=== PATIENT | male | born 1975 | race African-American/Black ===

== ENCOUNTER 2024-07-20 16:33 | Emergency (ER) | payer MEDICAID, OTHER ==
[~2024-07-20] VITALS: Ht 167.6 cm; Wt 63.6 kg
[2024-07-20 18:35] LABS: Basophils # (auto) 0 10 ^3/uL (0-0.2); Basophils % (auto) 0.6 % (0.0-2.0); Eosinophils # (auto) 0 10 ^3/uL (0-0.8); Eosinophils % (auto) 0.7 % (0.0-7.0); Hematocrit 40.9 % (41.0-53.0); Hemoglobin 13.6 g/dL (13.5-17.5); Lymphocytes # (auto) 1.6 10 ^3/uL (0.4-5.4); Lymphocytes % (auto) 31.2 % (10.0-50.0); Mean Corpuscular Hemoglobin 28.8 pg (28.0-32.0); Mean Corpuscular Hgb Conc. 33.3 g/dL (32.0-36.0); Mean Corpuscular Volume 86.4 fL (80.0-100.0); Monocytes # (auto) 0.4 10 ^3/uL (0-1.3); Monocytes % (auto) 8.4 % (0.0-12.0); Neutrophils % (auto) 59.1 % (37.0-80.0); Nucleated Red Blood Cells % 0.2 %; Platelet Count (auto) 178 10^3/uL (140-450); Red Blood Cells 4.74 10^6/uL (4.5-5.90); Red Cell Distribution Width 15.4 % (11.8-14.3)
[2024-07-20 18:52] LABS: INR 1.02 (0.9-1.15); Partial Thromboplastin Time 30.3 SEC (24.5-34.5); Prothrombin Time 10.8 sec (9.3-11.8)
[2024-07-20 18:54] LABS: Alanine Aminotransferase 17 U/L (7-40); Albumin 4.4 g/dL (3.2-4.8); Alkaline Phosphatase 86 U/L (46-116); Anion Gap 7 (5-15); Aspartate Aminotransferase 17 U/L (13-40); BUN/Creatinine Ratio 6.9 (10.0-20.0); Bilirubin, Total 0.3 mg/dL (0.2-1.0); Blood Urea Nitrogen 8 mg/dL (9-23); Calcium 9.7 mg/dL (8.7-10.4); Carbon Dioxide 26 mmol/L (20-30); Chloride 109 mmol/L (98-107); Glucose 89 mg/dL (74-106); Potassium 4.4 mmol/L (3.5-5.1); Sodium 142 mmol/L (136-145); Total Protein 6.9 g/dL (5.7-8.2)
[2024-07-20] MEDS: PANTOPRAZOLE 40 MG/10 ML VIAL INJ IV ONE (20:10)
[2024-07-20] MEDS: SODIUM CHLORIDE 0.9% 1,000 ML IV ONE (20:12)
[2024-07-20 20:19] VITALS: PULSE 74; RESP 17; O2SAT 100
[2024-07-20] MEDS: IOHEXOL 300 MG/ML 100ML BOTTLE IJ ONE (20:45)
[2024-07-20 22:30] VITALS: BP 142/83; PULSE 77; RESP 17; TEMP 98.6; O2SAT 100
== END 2024-07-20 22:34 | disposition home or self-care (01) ==
LOC: ER 16:33
DX: K62.5 Hemorrhage of anus and rectum (principal); I10 Essential (primary) hypertension
CPT/HCPCS: 36415; 74177; 80053; 85025; 85610; 85730; 86850; 86900; 86901; 96361; 96374; 99285; J2470; J7030; Q9967

== ENCOUNTER 2024-09-10 08:51 | Inpatient (IN) | payer MEDICAID ==
[~2024-09-10] VITALS: Ht 167.6 cm; Wt 63.5 kg
--- NOTE | 2024-09-10 09:15 | ED.PDOC ---
History of Present Illness HPI Comments 48-year-old male presents with a chief complaint of dizziness x onset last night. Patient states that he has vertigo, and the dizziness is exacerbated when attempting to walk. Patient reports that he feels like stumbling over when attempting to walk. Patient mentions that he last had vertigo in 2011. EKG shows NSR with a rate of 58. Chief Complaint: High Blood Pressure Time Seen by MD: 09:06 Reviewed Notes: Medications, Allergies Information Source: Patient Mode of Arrival: Ambulatory Severity: Moderate Timing: Hours Duration: Since onset Prehospital treatment: None Past Medical History PAST MEDICAL HISTORY: HTN Surgical History (Other): Neck Surgery Unspecified Family History Family History: Reviewed,noncontributory to illness Social History Smoker: Non-Smoker Alcohol: Denies ETOH Use Drugs: Denies Drug Use Lives In: Home Constitutional: denies: chills, diaphoresis, fatigue, fever, malaise, sweats, weakness, others EENTM: denies: blurred vision, double vision, ear bleeding, ear discharge, ear drainage, ear pain, ear ringing, eye pain, eye redness, hearing loss, mouth pain, mouth swelling, nasal discharge, nose bleeding, nose congestion, nose pain, photophobia, tearing, throat pain, throat swelling, voice changes, others Respiratory: denies: cough, hemoptysis, orthopnea, SOB at rest, shortness of breath, SOB with excertion, stridor, wheezing, others Cardiovascular: denies: chest pain, dizzy spells, diaphoresis, Dyspnea on exertion, edema, irregular heart beat, left arm pain, lightheadedness, palpitations, PND, syncope, others Gastrointestinal: denies: abdomen distended, abdominal pain, blood streaked bowels, constipated, diarrhea, dysphagia, difficulty swallowing, hematemesis, melena, nausea, poor appetite, poor fluid intake, rectal bleeding, rectal pain, vomiting, others Genitourinary: denies: burning, dysuria, flank pain, frequency, hematuria, incontinence, penile discharge, penile sore, pain, testicle pain, testicle swelling, urgency, others Neurological: reports: dizziness; denies: fainting, headache, left sided numbness, left sided weakness, numbness, paresthesia, pre-existing deficit, right sided numbness, right sided weakness, seizure, speech problems, tingling, tremors, weakness, others Musculoskeletal: denies: back pain, gout, joint pain, joint swelling, muscle pain, muscle stiffness, neck pain, others Integumetry: denies: bruises, change in color, change in hair/nails, dryness, laceration, lesions, lumps, rash, wounds, others Allergic/Immunocompromised: denies: Difficulty Healing, Frequent Infections, Hives, Itching, others Hematologic/Lymphatic: denies: anemia, blood clots, easy bleeding, easy bruising, swollen glands, others Endocrine: denies: excessive hunger, excessive sweating, excessive thirst, excessive urination, flushing, intolerance to cold, intolerance to heat, u nexplained weight gain, unexplained weight loss, others Psychiatric: denies: anxiety, bipolar disorder, depression, hopeless, panic disorder, schizophrenia, sleepless, suicidal, others All Other Systems: Reviewed and Negative Physical Exam General Appearance: Moderate Distress, Normal HEENT: Normal ENT Inspection, Pharynx Normal, TMs Normal Neck: Full Range of Motion, Non-Tender, Normal, Normal Inspection Respiratory: Chest Non-Tender, Lungs Clear, No Accessory Muscle Use, No Respiratory Distress, Normal Breath Sounds Cardiovascular: No Edema, No JVD, No Murmur, No Gallop, Normal Peripheral Puls es, Regular Rate/Rhythm Breast Exam: Deferred Gastrointestinal: No Organomegaly, Non Tender, No Pulsatile Mass, Normal Bowel Sounds, Soft Genitalia: Deferred Pelvic: Deferred Rectal: Deferred Extremities: No calf tenderness, Normal capillary refill, Normal inspection, Normal range of motion, Non-tender, No pedal edema Musculoskeletal : Apperance: Normal Neurologic: Alert, clean up worker II-XII nml as Tested, No Motor Deficits, Normal Affect, Normal Mood, No Sensory Deficits Cerebellar Function: Normal Reflexes: Normal Skin: Dry, Normal Color, Warm Peripheral Pulses: 3+ Radial (R), 3+ Radial (L) Lymphatic: No Adenopathy Was a procedure done? Was a procedure done?: No EKG EKG : Pulse Rate (adult): 58 [place]: Normal Cardiac Rhythm: NSR Block: None Hypertrophy: None ST: Normal Differential Dx Considerations may include: Autonomic disorder Electrolyte imbalance X-Ray, Labs, Meds, VS Vital Signs Date Time Temp Pulse Resp B/P (MAP) Pulse Ox O2 Delivery O2 Flow Rate FiO2 09/10/24 09:15 58 09/10/24 09:05 58 09/10/24 09:03 97.2 70 16 172/115 (134) 100 Patient alert. Complaining of dizziness pain EKG reviewed does not show any acute changes pain Blood pressure elevated. Bradycardia. Saturation pristine on room air. Reviewed his previous visit. Counseled patient on effects of smoking cigarettes for 15 minutes. Counseled patient on effects of taking drugs for 15 minutes. Continues to have dizziness. Was given clonidine. Possibly will need MRI. Explained to the patient. Time of 1ST Reevaluation: 09:36 Reevaluation 1ST: Unchanged Patient Education/Counseling: Diagnosis, Treatment, Prognosis Family Education/Counseling: No Family Present Departure 1 Departure Time of Disposition: 09:21 Impression: Primary Impression: Hypertensive emergency Additional Impression: Autonomic disorder Disposition: ADMITTED INPATIENT Admit to: Med Surg Condition: Guarded Critical Care Note Critical Care Time?: Yes (45 min-critical care time only) Stability Stability form required: No Heart Score Heart Score: Heart Score Response (Comments) Value History Slightly Suspicious 0 EKG Normal 0 Age 45-64 1 Risk Factors 1 or 2 risk factors 1 Troponin Normal limit 0 Total 2 I personally scribed for LELAND QUINONES MD ([email or web address]) on 09/10/24 at 09:15. Electronically submitted by César Blevins ([email or web address]). LELAND QUINONES MD Sep 10, 2024 09:15
[2024-09-10] MEDS: cloNIDine HCL 0.1 MG TAB PO ONE (09:31)
[2024-09-10 09:40] LABS: Basophils # (auto) 0 10 ^3/uL (0-0.2); Basophils % (auto) 0.4 % (0.0-2.0); Eosinophils # (auto) 0 10 ^3/uL (0-0.8); Eosinophils % (auto) 0.8 % (0.0-7.0); Hematocrit 45.1 % (41.0-53.0); Hemoglobin 14.8 g/dL (13.5-17.5); Lymphocytes # (auto) 1.4 10 ^3/uL (0.4-5.4); Lymphocytes % (auto) 30.6 % (10.0-50.0); Mean Corpuscular Hemoglobin 28.2 pg (28.0-32.0); Mean Corpuscular Hgb Conc. 32.8 g/dL (32.0-36.0); Mean Corpuscular Volume 86.1 fL (80.0-100.0); Monocytes # (auto) 0.4 10 ^3/uL (0-1.3); Monocytes % (auto) 9.2 % (0.0-12.0); Neutrophils # (auto) 2.8 10 ^3/uL (1.6-8.6); Nucleated Red Blood Cells % 0.1 %; Platelet Count (auto) 159 10^3/uL (140-450); Red Blood Cells 5.24 10^6/uL (4.5-5.90); Red Cell Distribution Width 15.1 % (11.8-14.3); White Blood Cell 4.7 10^3/uL (4.4-10.8)
[2024-09-10 09:51] LABS: Chloride 109 mmol/L (98-107); Potassium 4.2 mmol/L (3.5-5.1); Sodium 140 mmol/L (136-145)
[2024-09-10 09:52] LABS: Anion Gap 3 (5-15); Carbon Dioxide 28 mmol/L (20-31)
[2024-09-10 09:57] LABS: BUN/Creatinine Ratio 13.4 (10.0-20.0); Blood Urea Nitrogen 16 mg/dL (9-23); Glucose 100 mg/dL (74-106)
[2024-09-10] MEDS ORDERED: HYDROcodone-ACET 5/325MG TAB PO PRN ×2 (11:00→11:45)
[2024-09-10] MEDS ORDERED: ONDANSETRON HCL 4 MG/2 ML VIAL IV PRN ×2 (11:00→11:45)
[2024-09-10] MEDS ORDERED: DOCUSATE SOD 100 MG CAP PO PRN ×2 (11:00→11:45)
[2024-09-10] MEDS ORDERED: cloNIDine HCL 0.1 MG TAB PO PRN ×2 (11:00→11:45)
[2024-09-10] MEDS ORDERED: ACETAMINOPHEN 325 MG TAB PO PRN ×2 (11:00→11:45)
--- NOTE | 2024-09-10 11:40 | DVHHP2 ---
History of Present Illness Reason for Visit: Hypertensive urgency History of Present Illness The patient is a 48-year-old male with past medical history of hypertension and vertigo in 2011 presented to [facility] ED with complaint of dizziness. Patient reports symptoms progressively get worse with vertigo, elevated blood pressure, getting worse today that prompted this visit. Patient was seen and evaluated in the ED, laboratory data shows WBC 4.7, platelets 159, sodium 140, potassium 4.2, BUN 16, creatinine 1.19, glucose 100, calcium 10.0, blood pressure 172/115 trending down to 138/96, heart rate 66, temperature 97.6 F, O2 saturation 98% room air. Please see medication orders section in the computer. On my assessment, patient denies chest pain, no headache, no dizziness at this moment, no diaphoresis, no shortness of breath, no nausea, no vomiting, no fever, no chills. Patient was admitted for further evaluation and medical management. Past Medical History HTN, Vertigo Past Surgical History Neck Surgery Unspecified Family History Reviewed, noncontributory to the management of this case. Past Social History The patient lives at home, denies smoking, alcohol or illicit drugs abuse. Review of Systems Constitutional: No: Fever, Chills, Sweats, Weakness, Malaise, Other Eyes: No: Pain, Vision change, Conjunctivae inflammation, Eyelid inflammation, Other, Redness ENT: No: Ear pain, Ear discharge, Nose pain, Nose discharge, Nose congestion, Mouth pain, Mouth swelling, Throat pain, Throat swelling, Other Respiratory: No: Cough, Dry, Shortness of breath, SOB with excertion, Wheezing, Hemoptysis, Pleuritic Pain, Sputum, Wheezing, Other Cardiovascular: No: Chest Pain, Palpitations, Orthopnea, Paroxysmal Noc. Dyspnea, Edema, Lt Headedness, Other Gastrointestinal: No: Nausea, Vomiting, Abdominal Pain, Diarrhea, Constipation, Melena, Hematochezia, Other Genitourinary: No Dysuria, No Frequency, No Incontinence, No Hematuria, No Retention, No Other Musculoskeletal: No: other, neck pain, shoulder pain, arm pain, back pain, hand pain, leg pain, foot pain Skin: No: Rash, Lesions, Jaundice, Bruising, Other Neurological: No: Weakness, Numbness, Incoordination, Change in speech, Confusion, Seizures, Other Allergies: Coded Allergies: Morphine (Verified Allergy, Unknown, 09/10/24) Medications Current Medications Medications Dose Ordered Sig/Quintin Route Start Time Stop Time Status Last Admin Dose Admin Clonidine HCl 0.1 mg Q4HP PRN PO 09/10/24 11:00 UNV Metoprolol Tartrate 25 mg BID PO 09/10/24 22:00 UNV Sodium Chloride 10 ml Q8HR IV 09/10/24 14:00 UNV Acetaminophen/ Hydrocodone Bitart 1 tab Q4HP PRN PO 09/10/24 11:00 UNV Ondansetron HCl 4 mg Q4HP PRN IV 09/10/24 11:00 UNV Docusate Sodium 100 mg BIDPRN PRN PO 09/10/24 11:00 UNV Acetaminophen 650 mg Q6HP PRN PO 09/10/24 11:00 UNV Exam Vital Signs Vital Signs Date Time Temp Pulse Resp B/P (MAP) Pulse Ox O2 Delivery O2 Flow Rate FiO2 09/10/24 11:00 62 16 133/88 (103) 98 09/10/24 09:42 Room Air* 0 21 09/10/24 09:29 98.2 98.2 General Appearance: Alert, Oriented X3, Cooperative, No acute distress HEENT: Atraumatic, PERRLA, EOMI, Mucous membr. moist/pink Respiratory: Clear to auscultation, Normal air movement Cardiovascular: Regular rate, Normal S1, Normal S2, No murmurs Abdominal: Normal bowel sounds, Soft, No tenderness, No hepatospenomegaly, No masses Extremities: No clubbing, No cyanosis, No edema, Normal pulses, No tenderness/swelling Skin: No rashes, No breakdown, No significant lesion Neuro: Normal gait, Normal speech, Strength at 5/5 X4 ext, Normal tone, Sensation intact, Cranial nerves 3-12 NL, Reflexes 2+ Psych/Mental Status: Mental status NL, Mood NL Labs/Xrays Labs Test 09/10/24 09:20 Range/Units White Blood Count 4.7 4.4-10.8 10^3/uL Red Blood Count 5.24 4.5-5.90 10^6/uL Hemoglobin 14.8 13.5-17.5 g/dL Hematocrit 45.1 41.0-53.0 % Mean Corpuscular Volume 86.1 80.0-100.0 fL Mean Corpuscular Hemoglobin 28.2 28.0-32.0 pg Mean Corpuscular Hemoglobin Concent 32.8 32.0-36.0 g/dL Red Cell Distribution Width 15.1 H 11.8-14.3 % Platelet Count 159 140-450 10^3/uL Mean Platelet Volume 9.8 6.9-10.8 fL Neutrophils (%) (Auto) 59.0 37.0-80.0 % Lymphocytes (%) (Auto) 30.6 10.0-50.0 % Monocytes (%) (Auto) 9.2 0.0-12.0 % Eosinophils (%) (Auto) 0.8 0.0-7.0 % Basophils (%) (Auto) 0.4 0.0-2.0 % Neutrophils # (Auto) 2.8 1.6-8.6 10 ^3/uL Lymphocytes # (Auto) 1.4 0.4-5.4 10 ^3/uL Monocytes # (Auto) 0.4 0-1.3 10 ^3/uL Eosinophils # (Auto) 0 0-0.8 10 ^3/uL Basophils # (Auto) 0 0-0.2 10 ^3/uL Nucleated Red Blood Cells 0.1 % Sodium Level 140 136-145 mmol/L Potassium Level 4.2 3.5-5.1 mmol/L Chloride Level 109 H 98-107 mmol/L Carbon Dioxide Level 28 20-31 mmol/L Anion Gap 3 L 5-15 Blood Urea Nitrogen 16 9-23 mg/dL Creatinine 1.19 0.700-1.30 mg/dL Glomerular Filtration Rate Calc 74 >90 mL/min BUN/Creatinine Ratio 13.4 10.0-20.0 Serum Glucose 100 74-106 mg/dL Calcium Level 10.0 8.7-10.4 mg/dL Assessment/Plan Assessment/Plan Hypertensive urgency Plan discussed with: Patient, Other (RN) My Orders Orders - HERSON CARMONA DNP Procedure Category Date Status Time Clonidine Hcl Tablet PHA 09/10/24 Logged (Catapres Tablet) 11:00 Metoprolol Tartrate PHA 09/10/24 Logged Tablet (Lopressor Ta 22:00 Allergies GEM 09/10/24 In Process 10:58 Code Status CODE 09/10/24 Transmitted 10:58 Sodium Chloride Lock PHA 09/10/24 Logged (Saline Lock Ns) 14:00 Oxygen Per Hour RT 09/10/24 Transmitted 10:58 Hydrocodone-Acet PHA 09/10/24 Logged 5/325mg Tab ([place] 11:00 Ondansetron Hcl PHA 09/10/24 Logged (Zofran) 11:00 Docusate Sodium PHA 09/10/24 Logged Capsule (Colace 11:00 Complete Blood Count LAB 09/11/24 Verified 04:00 Comprehensive LAB 09/11/24 Verified Metabolic Panel 04:00 Cardiac DIET 09/10/24 Transmitted Diet-2gna,Lofat,Lochol Lunch Condition: Serious GEM 09/10/24 In Process 10:58 Acetaminophen Tablet PHA 09/10/24 Logged (Tylenol Tablet) 11:00 Bedrest With Bathroom GEM 09/10/24 In Process Privileg 10:58 Sequential GEM 09/10/24 In Process Compression Device Problem List: (1) Hypertensive urgency Date of Service: Sep 10, 2024 Billing Provider: HERSON CARMONA DNP Common Visit Codes: [id number] INP/OBS CARE (HIGH) HERSON CARMONA DNP Sep 10, 2024 11:40
[2024-09-10] MEDS ORDERED: NITROGLYCERIN 0.4 MG SL TAB SL PRN ×2 (11:45→12:00)
[2024-09-10] MEDS ORDERED: MORPHINE SULFATE INJ 2 MG/ml SYRG IV PRN ×2 (11:45→12:00)
[2024-09-10] MEDS ORDERED: SODIUM CHLOR 0.9% PF (SALINE LOCK) 10ML VIAL/SYR IV SCH (14:00)
[2024-09-10] MEDS: SODIUM CHLOR 0.9% PF (SALINE LOCK) 10ML VIAL/SYR IV SCH (15:35)
[2024-09-10 16:23] VITALS: BP 148/88; PULSE 54; RESP 20; TEMP 98.6; O2SAT 100
[2024-09-10 17:00] VITALS: BP 145/88; PULSE 57; RESP 20; TEMP 98.6; O2SAT 100
[2024-09-10] MEDS ORDERED: METO25TA93 PO (18:23)
[2024-09-10] MEDS ORDERED: LOSA-533 PO (18:23)
[2024-09-10] MEDS ORDERED: OMEP-434 PO (18:24)
[2024-09-10] MEDS ORDERED: ATOR40TA52 PO (18:25)
[2024-09-10] MEDS ORDERED: ASPI1TAB20 PO (18:25)
[2024-09-10 20:00] VITALS: PULSE 75
[2024-09-10] MEDS ORDERED: METOPROLOL TARTRATE 25 MG TAB PO SCH ×2 (22:00)
--- NOTE | 2024-09-11 08:42 | ECG ---
[facility] Test Date: 2024-09-10 Test Time: 09:05:48 Pat Name: INDIA GHISLAINE Department: ER Room: [address] [place] [id number] Gender: M Accredited Legal Secretary: Francia : 1975 Requested By: LELAND QUINONES Order Number: [id number] Reading MD: Pradip Marie Measurements Intervals [place] Rate: 58 P: 46 NV: 134 QRS: 83 QRSD: 79 T: 40 QT: 374 QTc: 368 Interpretive Statements Sinus rhythm Anterior infarct, old Electronically Signed On 09-12-2024 11:53:04 PST by Pradip Marie Please click the below link to view image of tracing.
== END 2024-09-10 20:28 | disposition left against medical advice (07) | DRG 199 ==
LOC: ER 08:51 → TELE 11:38 → ER 11:40 → TELE-E-ADS 15:57
PROVIDERS: ADMIT Nurse Practitioner Family; ATTEND Nurse Practitioner Family
DX: I16.0 Hypertensive urgency (principal); G90.9 Disorder of the autonomic nervous system, unspecified; Z53.29 Procedure and treatment not carried out because of patient's decision for other reasons; Z88.5 Allergy status to narcotic agent; Z79.899 Other long term (current) drug therapy
CPT/HCPCS: 36415; 80048; 85025; 93005; 96360; 99291; G0378

== ENCOUNTER → 2024-12-16 | Outpatient (CLI) | payer MEDICAID ==
[~2024-12-16] MED LIST: ASPI1TAB20 PO; ATOR40TA52 PO; LOSA-533 PO; METO25TA93 PO; OMEP-434 PO
[2024-12-16 07:29] LABS: Urine Bacteria None Seen /hpf (None Seen)
[2024-12-16 07:56] LABS: Urine Blood Negative /uL (Negative); Urine Clarity Clear (Clear); Urine Color Yellow (Yellow); Urine Protein, UAD 1+ (Negative); Urine Squamous Epithelial Cell FEW /hpf (<5); Urine Urobilinogen Normal (Negative); Urine WBC 4 /HPF (0-3)
[2024-12-16 08:07] LABS: Basophils # (auto) 0 10 ^3/uL (0-0.2); Basophils % (auto) 0.4 % (0.0-2.0); Eosinophils # (auto) 0.1 10 ^3/uL (0-0.8); Eosinophils % (auto) 2.2 % (0.0-7.0); Hematocrit 41.3 % (41.0-53.0); Hemoglobin 13.8 g/dL (13.5-17.5); Lymphocytes # (auto) 1.6 10 ^3/uL (0.4-5.4); Lymphocytes % (auto) 41.3 % (10.0-50.0); Mean Corpuscular Hemoglobin 28.7 pg (28.0-32.0); Mean Corpuscular Hgb Conc. 33.3 g/dL (32.0-36.0); Monocytes # (auto) 0.3 10 ^3/uL (0-1.3); Monocytes % (auto) 8.5 % (0.0-12.0); Neutrophils # (auto) 1.9 10 ^3/uL (1.6-8.6); Neutrophils % (auto) 47.6 % (37.0-80.0); Platelet Count (auto) 167 10^3/uL (140-450); Red Cell Distribution Width 14.7 % (11.8-14.3); White Blood Cell 3.9 10^3/uL (4.4-10.8)
[2024-12-16 08:17] LABS: Alanine Aminotransferase 17 U/L (7-40); Albumin 4.4 g/dL (3.2-4.8); Alkaline Phosphatase 82 U/L (46-116); Anion Gap 4 (5-15); BUN/Creatinine Ratio 9.1 (10.0-20.0); Blood Urea Nitrogen 11 mg/dL (9-23); Calcium 9.8 mg/dL (8.7-10.4); Carbon Dioxide 28 mmol/L (20-31); Cholesterol 133 mg/dL (< 200); Glucose 87 mg/dL (74-106); HDL Cholesterol 56 mg/dL (40-59); LDL Cholesterol 61 mg/dL (< 100); Potassium 4.1 mmol/L (3.5-5.1); Sodium 141 mmol/L (136-145); Triglycerides 77 mg/dL (< 150)
[2024-12-16 08:18] LABS: Bilirubin, Total 0.6 mg/dL (0.2-1.0); Chloride 109 mmol/L (98-107); Total Protein 6.7 g/dL (5.7-8.2)
[2024-12-16 08:23] LABS: Aspartate Aminotransferase 22 U/L (13-40)
[2024-12-16 11:38] LABS: Folate (Folic Acid) 14.09 ng/mL (>5.38)
== END | disposition home or self-care (01) ==
LOC: LAB 07:04
PROVIDERS: ATTEND Internal Medicine
DX: Z13.1 Encounter for screening for diabetes mellitus (principal); Z12.12 Encounter for screening for malignant neoplasm of rectum; Z13.220 Encounter for screening for lipoid disorders; I10 Essential (primary) hypertension
CPT/HCPCS: 36415; 80053; 80061; 81001; 82274; 82607; 82746; 83036; 84443; 85025

== ENCOUNTER → 2025-03-04 | Outpatient (CLI) | payer MEDICAID ==
[2025-03-04 13:33] LABS: Amphetamine Screen, Urine Neg (NEGATIVE); Barbiturate Scree,Urine Neg (NEGATIVE); Benzodiazephine Screen, Urine Neg (NEGATIVE); Cannabinoid Screen, Urine Pos (NEGATIVE); Cocaine Screen, Urine Neg (NEGATIVE); Opiate Scree,Urine Neg (NEGATIVE); Phencyclidine Screen, Urine Neg (NEGATIVE)
== END | disposition home or self-care (01) ==
LOC: LAB 12:04
PROVIDERS: ATTEND Psychiatry & Neurology Neurology
DX: M25.561 Pain in right knee (principal)
CPT/HCPCS: 80307

== ENCOUNTER 2025-03-07 23:53 | Emergency (ER) | payer MEDICAID ==
[~2025-03-07] VITALS: Ht 157.5 cm; Wt 60.2 kg
[2025-03-08] MEDS: KETOROLAC TROMETH 60MG/2ML VIAL IM ONE (01:21)
[2025-03-08 01:35] VITALS: BP 134/93; PULSE 67; RESP 17; TEMP 98.5; O2SAT 99
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
[2025-03-08] MEDS ORDERED: IBUP-1456 PO (02:14)
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
== END 2025-03-08 02:21 | disposition home or self-care (01) ==
LOC: ER 23:53
DX: S16.1XXA Strain of muscle, fascia and tendon at neck level, initial encounter (principal); R51.9 Headache, unspecified; I10 Essential (primary) hypertension; Z79.82 Long term (current) use of aspirin; Z79.899 Other long term (current) drug therapy; Z88.5 Allergy status to narcotic agent; Y04.2XXA Assault by strike against or bumped into by another person, initial encounter; Y93.89 Activity, other specified; Y92.89 Other specified places as the place of occurrence of the external cause; Y99.8 Other external cause status
CPT/HCPCS: 72125; 96372; 99285; J1885

== ENCOUNTER 2025-03-19 11:00 | Inpatient (IN) | payer MEDICAID ==
[~2025-03-19] VITALS: Ht 167.6 cm; Wt 57.6 kg
--- NOTE | 2025-03-19 11:25 | ED.PDOC ---
SOB-HPI HPI Comments 49 y/o M, with PMHx of HTN, CAD, and PA presents to the ED for CC of shortness of breath. Patient states, he has been experiencing shortness of breath with associated left sided chest pain onset, yesterday (03/18/25). Patient relays, previous malaise and Flu-like symptoms x1week ago. Patient reports, shortness of breath to worsen while standing, feeling as if he is unable to catch his breath. Patient reports, previous sick contacts at home. Patient denies fever, chills, dizziness, or headaches. No other symptoms or modifying factors present at this time. Time Seen by MD: 11:10 Primary Care Provider: Dr. Stacy Reviewed notes: Nurses Notes, Medications, Allergies Information Source: Patient Mode of Arrival: Ambulatory Severity: Moderate Timing: Weeks Duration: Since onset Context: At Rest PE Risk Factors: None History of: None Prehospital treatment: None Modifying Factors: Nothing Associated Signs and Symptoms: Cough, Nasal Congestion, Sore Throat Quality: Pressure Radiation: No Radiation Location: Chest (L) Past Medical History PAST MEDICAL HISTORY: CAD, HTN, PA Surgical History: PTCA Family History Family History: Reviewed,noncontributory to illness Social History Smoker: Cigarettes Alcohol: Rarely Drugs: Denies Drug Use Lives In: Home Constitutional: reports: malaise; denies: chills, diaphoresis, fatigue, fever, sweats, weakness, others EENTM: denies: blurred vision, double vision, ear bleeding, ear discharge, ear drainage, ear pain, ear ringing, eye pain, eye redness, hearing loss, mouth pain, mouth swelling, nasal discharge, nose bleeding, nose congestion, nose pain, photophobia, tearing, throat pain, throat swelling, voice changes, others Respiratory: reports: shortness of breath; denies: cough, hemoptysis, orthopnea, SOB at rest, SOB with excertion, stridor, wheezing, others Cardiovascular: reports: chest pain; denies: dizzy spells, diaphoresis, Dyspnea on exertion, edema, irregular heart beat, left arm pain, lightheadedness, palpitations, PND, syncope, others Gastrointestinal: denies: abdomen distended, abdominal pain, blood streaked bowels, constipated, diarrhea, dysphagia, difficulty swallowing, hematemesis, melena, nausea, poor appetite, poor fluid intake, rectal bleeding, rectal pain, vomiting, others Genitourinary: denies: burning, dysuria, flank pain, frequency, hematuria, incontinence, penile discharge, penile sore, pain, testicle pain, testicle s welling, urgency, others Neurological: denies: dizziness, fainting, headache, left sided numbness, left sided weakness, numbness, paresthesia, pre-existing deficit, right sided numbness, right sided weakness, seizure, speech problems, tingling, tremors, weakness, others Musculoskeletal: denies: back pain, gout, joint pain, joint swelling, muscle pain, muscle stiffness, neck pain, others Integumetry: denies: bruises, change in color, change in hair/nails, dryness, laceration, lesions, lumps, rash, wounds, others Allergic/Immunocompromised: denies: Difficulty Healing, Frequent Infections, Hives, Itching, others Hematologic/Lymphatic: denies: anemia, blood clots, easy bleeding, easy bruising, swollen glands, others Endocrine: denies: excessive hunger, excessive sweating, excessive thirst, excessive urination, flushing, intolerance to cold, intolerance to heat, unexplained weight gain, unexplained weight loss, others Psychiatric: denies: anxiety, bipolar disorder, depression, hopeless, panic disorder, schizophrenia, sleepless, suicidal, others All Other Systems: Reviewed and Negative Physical Exam General Appearance: Moderate Distress HEENT: Normal ENT Inspection, Pharynx Normal, TMs Normal Neck: Full Range of Motion, Non-Tender, Normal, Normal Inspection Respiratory: Chest Non-Tender, Lungs Clear, No Accessory Muscle Use, No Respiratory Distress, Normal Breath Sounds Cardiovascular: No Edema, No JVD, No Murmur, No Gallop, Normal Peripheral Pulses, Regular Rate/Rhythm Breast Exam: Deferred Gastrointestinal: No Organomegaly, Non Tender, No Pulsatile Mass, Normal Bowel Sounds, Soft Genitalia: Deferred Pelvic: Deferred Rectal: Deferred Extremities: No calf tenderness, Normal capillary refill, Normal inspection, Normal range of motion, Non-tender, No pedal edema Musculoskeletal : Apperance: Normal Neurologic: Alert, structural engineering technician II-XII nml as Tested, No Motor Deficits, Normal Affect, Normal Mood, No Sensory Deficits Cerebellar Function: Normal Reflexes: Normal Skin: Dry, Normal Color, Warm Lymphatic: No Adenopathy EKG EKG : Pulse Rate (adult): 85 [place]: Normal Cardiac Rhythm: NSR Block: None Hypertrophy: None ST: Normal Was a procedure done? Was a procedure done?: No Differential Dx Differential Diagnosis: Hypertension, Myocardial infarction, Sinusitis, Pharyngitis, URI X-Ray, Labs, Meds, VS Vital Signs Date Time Temp Pulse Resp B/P (MAP) Pulse Ox O2 Delivery O2 Flow Rate FiO2 03/19/25 16:35 125/93 03/19/25 16:33 96 6 125/93 (104) 100 03/19/25 16:33 92 18 104/81 (89) 98 03/19/25 11:32 98.4 71 20 145/103 (117) 100 98.4 03/19/25 11:25 85 03/19/25 11:17 85 Lab Test 03/19/25 13:38 03/19/25 11:40 Range/Units Troponin I High Sensitivity 3 L 3 L </=54 ng/L White Blood Count 5.0 4.4-10.8 10^3/uL Red Blood Count 5.29 4.5-5.90 10^6/uL Hemoglobin 14.7 13.5-17.5 g/dL Hematocrit 44.6 41.0-53.0 % Mean Corpuscular Volume 84.3 80.0-100.0 fL Mean Corpuscular Hemoglobin 27.9 L 28.0-32.0 pg Mean Corpuscular Hemoglobin Concent 33.1 32.0-36.0 g/dL Red Cell Distribution Width 14.9 H 11.8-14.3 % Platelet Count 159 140-450 10^3/uL Mean Platelet Volume 9.9 6.9-10.8 fL Neutrophils (%) (Auto) 65.6 37.0-80.0 % Lymphocytes (%) (Auto) 25.3 10.0-50.0 % Monocytes (%) (Auto) 8.5 0.0-12.0 % Eosinophils (%) (Auto) 0.1 0.0-7.0 % Basophils (%) (Auto) 0.5 0.0-2.0 % Neutrophils # (Auto) 3.3 1.6-8.6 10 ^3/uL Lymphocytes # (Auto) 1.3 0.4-5.4 10 ^3/uL Monocytes # (Auto) 0.4 0-1.3 10 ^3/uL Eosinophils # (Auto) 0 0-0.8 10 ^3/uL Basophils # (Auto) 0 0-0.2 10 ^3/uL Nucleated Red Blood Cells 0.1 % D-Dimer, Quantitative < 0.19 0.0-0.49 mg/L FEU Sodium Level 135 L 136-145 mmol/L Potassium Level 4.6 3.5-5.1 mmol/L Chloride Level 102 98-107 mmol/L Carbon Dioxide Level 27 20-31 mmol/L Anion Gap 6 5-15 Blood Urea Nitrogen 17 9-23 mg/dL Creatinine 1.17 0.700-1.30 mg/dL Glomerular Filtration Rate Calc 75 >90 mL/min BUN/Creatinine Ratio 14.5 10.0-20.0 Serum Glucose 97 74-106 mg/dL Calcium Level 10.1 8.7-10.4 mg/dL B-Type Natriuretic Peptide 5.77 0-100 pg/mL CXR: IMPRESSION: No acute intrathoracic abnormality. The patient was hypertensive so we did order clonidine for this patient At this time the patient is being admitted to the hospitalist The BNP is within normal limits The CBC is within normal limits The chemistry panel is within normal limits The D-dimer is less than 0.19 We are repeating the blood pressure and shows: 125/93 At this time, the patient is still having chest pain so we are going to give the patient nitroglycerin 1 in to the chest At this time, the patient is being admitted We will continue to monitor the patient's blood pressure Images Reviewed?: Images reviewed and evaluated by me Time of 1ST Reevaluation: 11:40 Reevaluation 1ST: Unchanged Patient Education/Counseling: Diagnosis, Treatment, Prognosis Family Education/Counseling: No Family Present Departure 1 Departure Time of Disposition: 16:18 Impression: Primary Impression: Accelerated hypertension Additional Impression: Acute chest pain Disposition: 09 ADMITTED INPATIENT Admit to: [facility] Condition: Fair Critical Care Note Critical Care Time?: Yes (35 min-critical care time only) Stability Stability form required: Yes Unstable for transfer: Telemetry monitoring (Telemetry monitoring required), ED Physician Assesment (Clinical assesment) Heart Score Heart Score: Heart Score Response (Comments) Value History Moderate Suspicious 1 EKG Repolarization Disturb 1 Age 45-64 1 Risk Factors 1 or 2 risk factors 1 Troponin N/A 0 Total 4 I personally scribed for JACY CHEN MD ([email or web address]) on 03/19/25 at 11:25. Electronically submitted by Aleah Manjarrez ([email or web address]). I personally scribed for JACY CHEN MD ([email or web address]) on 03/19/25 at 13:10. Electronically submitted by Aleah Manjarrez ([email or web address]). JACY CHEN MD March 19, 2025 11:25
--- NOTE | 2025-03-19 11:26 | ECG ---
[facility] Test Date: 2025-03-19 Test Time: 11:17:23 Pat Name: INDIA GHISLAINE Department: ER Room: Gender: Metals Analyst: KOURTNEY : 1975 Requested By: JACY CHEN Order Number: [id number] Reading MD: Pradip Marie Measurements Intervals [place] Rate: 85 P: 84 DC: 129 QRS: 51 QRSD: 79 T: 75 QT: 331 QTc: 394 Interpretive Statements Sinus rhythm Biatrial enlargement Electronically Signed On 03-19-2025 12:49:45 PDT by Pradip Marie Please click the below link to view image of tracing.
--- NOTE | 2025-03-19 11:49 | DVH ---
XY CHEST TWO VIEWS ROUTINE, HISTORY: CP COMPARISON: None None TECHNICAL DATA: 2 view of the chest was obtained. FINDINGS: Lines and tubes: None Cardiomediastinal silhouette: normal Pulmonary vasculature: normal Lung expansion: normal Lung airspace: normal Lung interstitium: normal Pleura: normal Pneumothorax: no Bones: Unremarkable Other: no IMPRESSION: No acute intrathoracic abnormality.
[2025-03-19 11:50] LABS: Basophils # (auto) 0 10 ^3/uL (0-0.2); Basophils % (auto) 0.5 % (0.0-2.0); Eosinophils # (auto) 0 10 ^3/uL (0-0.8); Eosinophils % (auto) 0.1 % (0.0-7.0); Hematocrit 44.6 % (41.0-53.0); Hemoglobin 14.7 g/dL (13.5-17.5); Lymphocytes # (auto) 1.3 10 ^3/uL (0.4-5.4); Lymphocytes % (auto) 25.3 % (10.0-50.0); Mean Corpuscular Hemoglobin 27.9 pg (28.0-32.0); Mean Corpuscular Hgb Conc. 33.1 g/dL (32.0-36.0); Mean Corpuscular Volume 84.3 fL (80.0-100.0); Monocytes # (auto) 0.4 10 ^3/uL (0-1.3); Monocytes % (auto) 8.5 % (0.0-12.0); Neutrophils # (auto) 3.3 10 ^3/uL (1.6-8.6); Neutrophils % (auto) 65.6 % (37.0-80.0); Nucleated Red Blood Cells % 0.1 %; Platelet Count (auto) 159 10^3/uL (140-450); Red Blood Cells 5.29 10^6/uL (4.5-5.90); Red Cell Distribution Width 14.9 % (11.8-14.3)
[2025-03-19 11:58] LABS: Chloride 102 mmol/L (98-107); Potassium 4.6 mmol/L (3.5-5.1)
[2025-03-19 11:59] LABS: Anion Gap 6 (5-15); Calcium 10.1 mg/dL (8.7-10.4); Carbon Dioxide 27 mmol/L (20-31)
[2025-03-19 12:04] LABS: BUN/Creatinine Ratio 14.5 (10.0-20.0); Blood Urea Nitrogen 17 mg/dL (9-23); Glucose 97 mg/dL (74-106)
[2025-03-19 12:05] LABS: Sodium 135 mmol/L (136-145)
[2025-03-19 16:33] VITALS: PULSE 89; RESP 19; O2SAT 97
[2025-03-19] MEDS: cloNIDine HCL 0.1 MG TAB PO ONE (16:35)
[2025-03-19] MEDS: ASPirin 81 mg TAB PO ONE (16:42)
[2025-03-19] MEDS ORDERED: ONDANSETRON HCL 4 MG/2 ML VIAL IV PRN (19:15)
[2025-03-19] MEDS ORDERED: NITROGLYCERIN 0.4 MG SL TAB SL PRN (19:15)
[2025-03-19] MEDS ORDERED: MORPHINE SULFATE INJ 2 MG/ml SYRG IV PRN (19:15)
[2025-03-19] MEDS ORDERED: ACETAMINOPHEN 325 MG TAB PO PRN (19:15)
[2025-03-19 20:00] VITALS: BP 127/67; PULSE 92; RESP 14; TEMP 98.4; O2SAT 98
--- NOTE | 2025-03-19 20:58 | DVHHP2 ---
History of Present Illness Reason for Visit: Chest pain History of Present Illness 49-year-old male presents for evaluation of chest pain. Patient reports that a week ago he developed flu-like symptoms with associated cough, fever and shortness for breath. He states the symptoms have subsided. She reports that two days ago he developed left-sided sharp chest pain that has been ongoing. He also reports becoming fatigued with mild exertion. No nausea or vomiting. No other acute complaints reported. Past Medical History PR, hypertension, CAD Past Surgical History PTCA Family History Noncontributory Smoke: <1 pack per day ALCOHOL: occassional Drugs: None Lives: with Family Review of Systems Review of Systems Review of systems are currently negative otherwise addressed in HPI. Allergies: Coded Allergies: Morphine (Verified Allergy, Unknown, 09/10/24) Medications Current Medications Medications Dose Ordered Sig/Quintin Route Start Time Stop Time Status Last Admin Dose Admin Losartan Potassium 50 mg DAILY PO 03/20/25 10:00 Atorvastatin Calcium 40 mg HS PO 03/19/25 22:00 Aspirin 81 mg DAILY PO 03/20/25 10:00 Metoprolol Succinate 25 mg DAILY PO 03/20/25 10:00 Ondansetron HCl 4 mg Q4HP PRN IV 03/19/25 19:15 Acetaminophen 650 mg Q6HP PRN PO 03/19/25 19:15 Nitroglycerin 0.4 mg Q5MINP PRN SL 03/19/25 19:15 Morphine Sulfate 2 mg Q30M PRN IV 03/19/25 19:15 Hold Exam Vital Signs Vital Signs Date Time Temp Pulse Resp B/P (MAP) Pulse Ox O2 Delivery O2 Flow Rate FiO2 03/19/25 20:00 98.4 92 14 127/67 (87) 98 98.4 03/19/25 16:33 Room Air* 0 21 Exam Gen: 49-year-old male in no apparent distress. Skin: Warm, dry, normal color and texture, no rash. HEENT: Normocephalic atraumatic, mucous membranes moist and pink. Neck: Cervical and supraclavicular nodes normal without enlargement, trachea is midline, thyroid gland is normal without masses. Pulmonary: Clear to auscultation and percussion bilaterally. Cardiac: Regular rate and rhythm. No murmur Abdomen: Soft, nontender, nondistended, bowel sounds present all 4 quadrants, no guarding, no rigidity, no organomegaly. Extremities: No cyanosis, clubbing, no edema Neuro: Cranial nerves II through XII grossly intact, normal affect and speech, no focal motor deficits. Labs/Xrays ORDERING PHYSICIAN: SINA PAYTON MD PROCEDURE(s): ECIDC - ECHO 2D MODE CARDIAC DOP REASON: I25.10 ORDER NUMBER(s): [id number], ACCESSION NUMBER(s): [id number] APPROVED REPORT EXAM: Two-dimensional and M-mode echocardiogram with Doppler and color Doppler. INDICATION Atherosclerosis BRIEF HISTORY Cardiac Disease: CAD RISK FACTORS Hypertension: Height: 66, Weight: 140 Smoking: DIMENSIONS LVDd 3.9 (3.8-5.7cm) LA (2D) 3.0 (1.9-4.0cm) Aortic Root 3.0 (2.0- 3.7cm) LVDs 2.7 (2.5-4.0cm) LA (MM) (1.9-4.0cm) Aortic Cusp Exc 1.8 (1.5- 2.0cm) EF (%) 59.0 (55-70%) Rt. Atrium 3.1 (1.9-4.0cm) Asc. Aorta cm IVSd 0.9 (0.7-1.1cm) RV (D) (1.8-2.4cm) PWd 1.0 (0.7-1.1cm) Mitral Valve Mitral Mitral Stenosis E wave 0.62m/s MV Mean GR. mmHg A wave 0.57m/s MV Peak GR. mmHg E/A ratio 1.1 2D MVA cm2 DECEL Time 230ms PRESS 1/2 Time ms Aortic Valve Aortic Valve Aortic Stenosis V1 1.15m/s AO Mean GR. 3mmHg V2 1.26m/s AO Peak GR. 6mmHg LVOT Diameter 1.9 (1.8-2.4cm) Doppler COLLEEN 2.59cm2 AI P 1/2 Time 649.77ms Pulmonic Valve V2 1.19m/s Tricuspid Valve RVSP 3mmHg Conclusion Technically good study. Sinus rhythm. Concentric LVH. Valves are normal. EF of 60% with normal RV function. Mild aortic insufficiency. No pericardial effusion masses or vegetations. SIGNED BY: NAZANIN GARCIA Sr., MD SIGNED DATE/TIME: 12/11/24 4097 CC: ORDERING PHYSICIAN: JACY CHEN MD PROCEDURE(s): CXR2 - CHEST TWO VIEWS ROUTINE REASON: CP ORDER NUMBER(s): [id number], ACCESSION NUMBER(s): [id number] XY CHEST TWO VIEWS ROUTINE, HISTORY: CP COMPARISON: None None TECHNICAL DATA: 2 view of the chest was obtained. FINDINGS: Lines and tubes: None Cardiomediastinal silhouette: normal Pulmonary vasculature: normal Lung expansion: normal Lung airspace: normal Lung interstitium: normal Pleura: normal Pneumothorax: no Bones: Unremarkable Other: no IMPRESSION: No acute intrathoracic abnormality. Labs Test 03/19/25 13:38 03/19/25 11:40 Range/Units Troponin I High Sensitivity 3 L </=54 ng/L White Blood Count 5.0 4.4-10.8 10^3/uL Red Blood Count 5.29 4.5-5.90 10^6/uL Hemoglobin 14.7 13.5-17.5 g/dL Hematocrit 44.6 41.0-53.0 % Mean Corpuscular Volume 84.3 80.0-100.0 fL Mean Corpuscular Hemoglobin 27.9 L 28.0-32.0 pg Mean Corpuscular Hemoglobin Concent 33.1 32.0-36.0 g/dL Red Cell Distribution Width 14.9 H 11.8-14.3 % Platelet Count 159 140-450 10^3/uL Mean Platelet Volume 9.9 6.9-10.8 fL Neutrophils (%) (Auto) 65.6 37.0-80.0 % Lymphocytes (%) (Auto) 25.3 10.0-50.0 % Monocytes (%) (Auto) 8.5 0.0-12.0 % Eosinophils (%) (Auto) 0.1 0.0-7.0 % Basophils (%) (Auto) 0.5 0.0-2.0 % Neutrophils # (Auto) 3.3 1.6-8.6 10 ^3/uL Lymphocytes # (Auto) 1.3 0.4-5.4 10 ^3/uL Monocytes # (Auto) 0.4 0-1.3 10 ^3/uL Eosinophils # (Auto) 0 0-0.8 10 ^3/uL Basophils # (Auto) 0 0-0.2 10 ^3/uL Nucleated Red Blood Cells 0.1 % D-Dimer, Quantitative < 0.19 0.0-0.49 mg/L FEU Sodium Level 135 L 136-145 mmol/L Potassium Level 4.6 3.5-5.1 mmol/L Chloride Level 102 98-107 mmol/L Carbon Dioxide Level 27 20-31 mmol/L Anion Gap 6 5-15 Blood Urea Nitrogen 17 9-23 mg/dL Creatinine 1.17 0.700-1.30 mg/dL Glomerular Filtration Rate Calc 75 >90 mL/min BUN/Creatinine Ratio 14.5 10.0-20.0 Serum Glucose 97 74-106 mg/dL Calcium Level 10.1 8.7-10.4 mg/dL B-Type Natriuretic Peptide 5.77 0-100 pg/mL Assessment/Plan Assessment/Plan Assessment Chest pain History of PR Hypertension Plan Admit the patient to telemetry to the hospitalist BNP with morning labs Resume home medications TSH/lipids pending Continue treatment per orders. Plan discussed with: Patient My Orders Orders - IRENA GOLD [facility] Procedure Category Date Status Time Losartan Tablet PHA 03/20/25 In Process (Cozaar Tablet) 10:00 Atorvastatin (Lipitor) PHA 03/19/25 In Process 22:00 Aspirin Tablet PHA 03/20/25 In Process 10:00 Metoprolol Xl PHA 03/20/25 In Process Succinate (Toprol Xl) 10:00 Admit ADMIT 03/19/25 Transmitted 19:04 Ondansetron Hcl PHA 03/19/25 In Process (Zofran) 19:15 Cardiac DIET 03/20/25 Transmitted Diet-2gna,Lofat,Lochol Breakfast Condition: Fair GEM 03/19/25 In Process 19:04 Acetaminophen Tablet PHA 03/19/25 In Process (Tylenol Tablet) 19:15 Bedrest With Bathroom GEM 03/19/25 In Process Privileg 19:04 Nitroglycerin PHA 03/19/25 In Process Sublingual (Ntrostat 19:15 Morphine Sulfate PHA 03/19/25 In Process Injection 19:15 Stat Ekg For Chest [facility] 03/19/25 In Process Pain 19:04 Notify Of Changes [facility] 03/19/25 In Process From Base 19:04 Project Product Manager For [facility] 03/19/25 In Process 24 Hours 19:04 Emergency Dysrhythmia [facility] 03/19/25 In Process Protocol 19:04 Rhythm Strips Once [facility] 03/19/25 In Process Every Shift 19:04 Oxygen By Nasal RT 03/19/25 Transmitted Cannula 19:04 Basic Metabolic Panel LAB 03/20/25 Verified 04:00 Pharmacy [facility] 03/19/25 In Process Clarification: 19:15 Date of Service: March 19, 2025 Billing Provider: IRENA GOLD Common Visit Codes: [id number] INP/OBS CARE (HIGH) IRENA GOLD March 19, 2025 20:58
[2025-03-19] MEDS: NTG 0.1MG/HR TOPICAL PATCH TD ONE (21:15)
[2025-03-19 21:44] LABS: LDL Cholesterol 77 mg/dL (< 100); Triglycerides 115 mg/dL (< 150)
[2025-03-19 21:46] LABS: Cholesterol 143 mg/dL (< 200); HDL Cholesterol 43 mg/dL (40-59)
[2025-03-19] MEDS: ATORVASTATIN 20 MG TAB PO SCH (22:00)
[2025-03-20] MEDS ORDERED: ASPirin 81 mg TAB PO SCH (10:00)
[2025-03-20] MEDS ORDERED: LOSARTAN POTASSIUM 50 MG TAB PO SCH (10:00)
[2025-03-20] MEDS ORDERED: METOPROLOL SUCCINATE XL 50 MG TAB PO SCH (10:00)
[2025-03-21 10:24] LABS: Hepatitis B Surface Antigen Negative (Negative)
[2025-03-21 10:27] LABS: Hepatitis C Antibody Negative (Negative)
== END 2025-03-19 23:15 | disposition left against medical advice (07) | DRG 198 ==
LOC: ER 11:06 → OVERFLOW 19:04
PROVIDERS: ADMIT Nurse Practitioner; ATTEND Nurse Practitioner
DX: R07.9 Chest pain, unspecified (principal); I25.10 Atherosclerotic heart disease of native coronary artery without angina pectoris; F17.210 Nicotine dependence, cigarettes, uncomplicated; I10 Essential (primary) hypertension; Z53.29 Procedure and treatment not carried out because of patient's decision for other reasons; I25.2 Old myocardial infarction; Z88.5 Allergy status to narcotic agent
CPT/HCPCS: 36415; 71046; 80048; 80061; 83880; 84443; 84484; 85025; 85379; 86803; 87340; 93005; G0378

== ENCOUNTER 2025-05-15 18:42 | Emergency (ER) | payer MEDICAID ==
[~2025-05-15] VITALS: Ht 167.6 cm; Wt 58.9 kg
--- NOTE | 2025-05-15 19:45 | ED.PDOC ---
History of Present Illness HPI Comments Patient is a 49-year-old male with a past medical history of coronary artery disease, PR s/p PCI with stent presented to the ER with a chief complaint of elevated blood pressure and headache. Patient with a since the elevated pressure in the range of 150-160/100-110 associated with a headache in the left temporal region, dizziness when he tries to stand up from the sitting/lying position associated with sensation of spinning which resolved on its own after a while. Patient denies any focal weakness, slurred speech, difficulty swallowing, no blurred vision. Patient denied any chest pain or shortness of breath. Chief Complaint: High Blood Pressure Time Seen by MD: 18:56 Primary Care Provider: UNKNOWN Allergies: Coded Allergies: Morphine (Verified Allergy, Unknown, 09/10/24) Home Meds Reported Medications Aspirin (Aspir-81) 81 Mg Tab, 1 TAB PO DAILY, #30 TAB 5 Refills 09/10/24 Atorvastatin Calcium (ATORVASTATIN CALCIUM) 40 Mg Tab, 1 TAB PO DAILY, #30 TAB 5 Refills 09/10/24 Omeprazole Magnesium (Omeprazole) 20 Mg Tab, 20 MG PO, TAB 09/10/24 Metoprolol Succinate (Metoprolol Succinate Er) 25 Mg Tab, 25 MG PO DAILY for 30 Days, MG 09/10/24 Losartan Potassium (Losartan Potassium) 25 Mg Tab, 25 MG PO DAILY for 30 Days, MG 09/10/24 Past Medical History PAST MEDICAL HISTORY: CAD, HTN, PR Surgical History: PTCA Surgical History (Other): Neck surgery Family History Family History: Reviewed,noncontributory to illness Social History Smoker: Cigarettes (Half a pack a day for the last 30 years) Alcohol: Rarely Drugs: Denies Drug Use Lives In: Home Constitutional: denies: chills, diaphoresis, fatigue, fever, malaise, sweats, weakness, others EENTM: denies: blurred vision, double vision, ear bleeding, ear discharge, ear drainage, ear pain, ear ringing, eye pain, eye redness, hearing loss, mouth pain, mouth swelling, nasal discharge, nose bleeding, nose congestion, nose pain, photophobia, tearing, throat pain, throat swelling, voice changes, others Respiratory: denies: cough, hemoptysis, orthopnea, SOB at rest, shortness of breath, SOB with excertion, stridor, wheezing, others Cardiovascular: denies: chest pain, dizzy spells, diaphoresis, Dyspnea on exertion, edema, irregular heart beat, left arm pain, lightheadedness, palpitations, PND, syncope, others Gastrointestinal: denies: abdomen distended, abdominal pain, blood streaked bowels, constipated, diarrhea, dysphagia, difficulty swallowing, hematemesis, melena, nausea, poor appetite, poor fluid intake, rectal bleeding, rectal pain, vomiting, others Genitourinary: denies: burning, dysuria, flank pain, frequency, hematuria, incontinence, penile discharge, penile sore, pain, testicle pain, testicle swelling, urgency, others Neurological: reports: headache (Left temporal behind eye) Musculoskeletal: denies: back pain, gout, joint pain, joint swelling, muscle pain, muscle stiffness, neck pain, others Integumetry: denies: bruises, change in color, change in hair/nails, dryness, laceration, lesions, lumps, rash, wounds, others Allergic/Immunocompromised: denies: Difficulty Healing, Frequent Infections, Hives, Itching, others Hematologic/Lymphatic: denies: anemia, blood clots, easy bleeding, easy bruising, swollen glands, others Endocrine: denies: excessive hunger, excessive sweating, excessive thirst, excessive urination, flushing, intolerance to cold, intolerance to heat, unexplained weight gain, unexplained weight loss, others Psychiatric: denies: anxiety, bipolar disorder, depression, hopeless, panic disorder, schizophrenia, sleepless, suicidal, others Physical Exam General Appearance: No Apparent Distress, Normal HEENT: Normal ENT Inspection, Pharynx Normal, TMs Normal Neck: Full Range of Motion, Non-Tender, Normal, Normal Inspection Respiratory: Chest Non-Tender, Lungs Clear, No Accessory Muscle Use, No Respiratory Distress, Normal Breath Sounds Cardiovascular: No Edema, No JVD, No Murmur, No Gallop, Normal Peripheral Pulses, Regular Rate/Rhythm Breast Exam: Deferred Gastrointestinal: No Organomegaly, Non Tender, No Pulsatile Mass, Normal Bowel Sounds, Soft Genitalia: Deferred Pelvic: Deferred Rectal: Deferred Extremities: No calf tenderness, Normal capillary refill, Normal inspection, No rmal range of motion, Non-tender, No pedal edema Neurologic: Alert, social media director II-XII nml as Tested, No Motor Deficits, Normal Affect, Normal Mood, No Sensory Deficits Cerebellar Function: Normal Reflexes: Normal Skin: Dry, Normal Color, Warm Peripheral Pulses: 2+ carotid (R), 2+ carotid (L), 2+ femoral (R), 2+ femoral (L), 2+ dorsalis pedis (R), 2+ dorsalis pedis (L), 2+ Radial (R), 2+ Radial (L) Lymphatic: No Adenopathy Was a procedure done? Was a procedure done?: No EKG EKG : Pulse Rate (adult): 63 [place]: Normal Cardiac Rhythm: NSR Block: None Hypertrophy: None ST: Normal Differential Dx Considerations may include: Uncontrolled hypertension, TIA, headache, electrolyte imbalance, dehydration, polysubstance use X-Ray, Labs, Meds, VS Vital Signs Date Time Temp Pulse Resp B/P (MAP) Pulse Ox O2 Delivery O2 Flow Rate FiO2 05/15/25 21:22 157/85 05/15/25 21:00 98.1 66 19 163/104 (123) 97 98.1 05/15/25 21:00 Room Air* 0 21 05/15/25 20:26 64 05/15/25 19:24 98.4 70 16 164/102 (122) 99 98.4 Lab Test 05/15/25 21:00 05/15/25 19:41 Range/Units Urine Color Light-yellow Yellow Urine Clarity Clear Clear Urine pH 5.5 5.0-9.0 Urine Specific [place] 1.014 1.001-1.035 Urine Protein Negative Negative Urine Ketones Negative Negative Urine Blood Negative Negative /uL Urine Nitrite Negative Negative Urine Bilirubin Negative Negative Urine Urobilinogen Normal Negative mg/dL Urine Leukocyte Esterase Trace Negative /uL Urine RBC 1 0 - 3 /hpf Urine Microscopic WBC 4 H 0-3 /HPF Urine Squamous Epithelial Cells None seen <5 /hpf Urine Bacteria None seen None Seen /hpf Urine Glucose Normal Normal mg/dL Urine Opiates Screen Neg NEGATIVE Urine Fentanyl Screen Neg NEGATIVE Urine Barbiturates Screen Neg NEGATIVE Urine Phencyclidine Screen Neg NEGATIVE Urine Amphetamines Screen Neg NEGATIVE Urine Benzodiazepines Screen Neg NEGATIVE Urine Cocaine Screen Neg NEGATIVE Urine Cannabinoids Screen Pos NEGATIVE White Blood Count 6.6 4.4-10.8 10^3/uL Red Blood Count 4.91 4.5-5.90 10^6/uL Hemoglobin 13.7 13.5-17.5 g/dL Hematocrit 41.9 41.0-53.0 % Mean Corpuscular Volume 85.4 80.0-100.0 fL Mean Corpuscular Hemoglobin 28.0 28.0-32.0 pg Mean Corpuscular Hemoglobin Concent 32.8 32.0-36.0 g/dL Red Cell Distribution Width 15.5 H 11.8-14.3 % Platelet Count 185 140-450 10^3/uL Mean Platelet Volume 9.8 6.9-10.8 fL Neutrophils (%) (Auto) 58.5 37.0-80.0 % Lymphocytes (%) (Auto) 32.3 10.0-50.0 % Monocytes (%) (Auto) 8.2 0.0-12.0 % Eosinophils (%) (Auto) 0.6 0.0-7.0 % Basophils (%) (Auto) 0.4 0.0-2.0 % Neutrophils # (Auto) 3.9 1.6-8.6 10 ^3/uL Lymphocytes # (Auto) 2.1 0.4-5.4 10 ^3/uL Monocytes # (Auto) 0.5 0-1.3 10 ^3/uL Eosinophils # (Auto) 0 0-0.8 10 ^3/uL Basophils # (Auto) 0 0-0.2 10 ^3/uL Nucleated Red Blood Cells 0.1 % Sodium Level 142 136-145 mmol/L Potassium Level 3.8 3.5-5.1 mmol/L Chloride Level 108 H 98-107 mmol/L Carbon Dioxide Level 25 20-31 mmol/L Anion Gap 9 5-15 Blood Urea Nitrogen 11 9-23 mg/dL Creatinine 1.20 0.700-1.30 mg/dL Glomerular Filtration Rate Calc 73 >90 mL/min BUN/Creatinine Ratio 9.2 L 10.0-20.0 Serum Glucose 73 L 74-106 mg/dL Calcium Level 10.1 8.7-10.4 mg/dL Current Medications Medications (Trade) Dose Ordered Sig/Quintin Route Start Time Stop Time Status Last Admin Amlodipine Besylate (Norvasc Tablet) 10 mg ONCE ONCE PO 05/15/25 19:30 05/15/25 19:31 DC 05/15/25 21:22 Ibuprofen (Motrin Tablet) 400 mg ONCE ONCE PO 05/15/25 20:00 05/15/25 20:06 DC 05/15/25 21:22 Acetaminophen (Tylenol Tablet) 650 mg ONCE ONCE PO 05/15/25 20:00 05/15/25 20:06 DC 05/15/25 21:23 Patient 49-year-old male came to the ER with a chief complaint of elevated blood pressure at home with readings 150/100s and associated left-sided headache. On arrival patient's blood pressure was elevated 164/102 , head CT was done which did not show any acute intracranial abnormality. Patient's blood pressure decreased and was given 10 mg of amlodipine. For headache patient was given 1 tab of acetaminophen and ibuprofen. Patient did not show any signs of motor focal deficits , sensory deficit, slurred speech, no cerebellar signs on physical examination. Patient is being discharged in stable condition to home. He will be sent amlodipine 5 mg daily for the next 2 weeks he sees his PCP. In case the patient's symptoms worsen he is advised to visit the ER back. Time of 1ST Reevaluation: 21:03 Reevaluation 1ST: Improved Patient Education/Counseling: Diagnosis, Treatment Family Education/Counseling: No Family Present SEPSIS Sepsis Screen Physician Orders Electrocardigram (05/15/25 19:20) Head Without Contrast (05/15/25 19:20) Vital Signs Date Time Temp Pulse Resp B/P (MAP) Pulse Ox O2 Delivery O2 Flow Rate FiO2 05/15/25 21:22 157/85 05/15/25 21:00 98.1 66 19 163/104 (123) 97 98.1 05/15/25 21:00 Room Air* 0 21 05/15/25 20:26 64 05/15/25 19:24 98.4 70 16 164/102 (122) 99 98.4 Laboratory Tests Test 05/15/25 19:41 White Blood Count 6.6 10^3/uL (4.4-10.8) Medications Medications Dose Ordered Sig/Quintin Route Start Time Stop Time Status Last Admin Dose Admin Acetaminophen 650 mg ONCE ONCE PO 05/15/25 20:00 05/15/25 20:06 DC 05/15/25 21:23 Amlodipine Besylate 10 mg ONCE ONCE PO 05/15/25 19:30 05/15/25 19:31 DC 05/15/25 21:22 Ibuprofen 400 mg ONCE ONCE PO 05/15/25 20:00 05/15/25 20:06 DC 05/15/25 21:22 Departure 1 Departure Time of Disposition: 21:50 Impression: Primary Impression: Accelerated hypertension Additional Impressions: Strain of neck muscle Headache Disposition: 50 HOSPICE/HOME Condition: Stable Critical Care Note Critical Care Time?: No Stability Stability form required: No Heart Score Heart Score: Heart Score Response (Comments) Value History N/A 0 EKG N/A 0 Age N/A 0 Risk Factors N/A 0 Troponin N/A 0 Total 0 JAZMIN GREGG RESIDENT May 15, 2025 19:45
[2025-05-15 20:04] LABS: Hematocrit 41.9 % (41.0-53.0); Hemoglobin 13.7 g/dL (13.5-17.5); Mean Corpuscular Hemoglobin 28.0 pg (28.0-32.0); Mean Corpuscular Volume 85.4 fL (80.0-100.0); Nucleated Red Blood Cells % 0.1 %
[2025-05-15 20:11] LABS: Potassium 3.8 mmol/L (3.5-5.1); Sodium 142 mmol/L (136-145)
[2025-05-15 20:12] LABS: Anion Gap 9 (5-15); Calcium 10.1 mg/dL (8.7-10.4); Carbon Dioxide 25 mmol/L (20-31)
--- NOTE | 2025-05-15 20:12 | DVH ---
CT HEAD WITHOUT CONTRAST INDICATION: headache, elevated BP EXAM DATE: 05/15/2025 07:44 PM COMPARISON: None RADIATION DOSE: CTDIvol: 51.13 mGy, DLP: 819.75 mGy*cm PROCEDURE: CT scans of the head were obtained from the vertex to the skull base. Sagittal and coronal reconstructions were provided. All CT scans at this medical facility are performed using dose modulation techniques as appropriate t o a performed exam including the following: Automated exposure control was utilized; adjustment of th e MA and/or KV according to patient size; and use of iterative reconstruction technique. FINDINGS: The cerebral parenchyma appears to be normal configuration and attenuation. The ventricles, cisterns , and sulci appear age-appropriate. There is no evidence for acute territorial infarct, hemorrhage, or mass effect. The orbits are normal. The visualized paranasal sinuses and mastoid air cells are clear. The soft t issues and osseous structures appear within normal limits. IMPRESSION: 1. No acute territorial infarct, intracranial hemorrhage, or mass effect. If clinical symptoms persis t, MRI may be beneficial in further evaluation.
[2025-05-15 20:17] LABS: BUN/Creatinine Ratio 9.2 (10.0-20.0); Blood Urea Nitrogen 11 mg/dL (9-23)
[2025-05-15 20:19] LABS: Chloride 108 mmol/L (98-107); Glucose 73 mg/dL (74-106)
[2025-05-15 21:00] VITALS: TEMP 98.1
[2025-05-15] MEDS: IBUPROFEN 400 MG TAB PO ONE (21:22)
[2025-05-15] MEDS: ACETAMINOPHEN 325 MG TAB PO ONE (21:23)
[2025-05-15 21:31] LABS: Urine Protein, UAD Negative (Negative)
[2025-05-15 21:35] LABS: Amphetamine Screen, Urine Neg (NEGATIVE)
[2025-05-15 21:36] LABS: Opiate Scree,Urine Neg (NEGATIVE)
[2025-05-15 21:42] LABS: Barbiturate Scree,Urine Neg (NEGATIVE); Benzodiazephine Screen, Urine Neg (NEGATIVE); Cannabinoid Screen, Urine Pos (NEGATIVE); Cocaine Screen, Urine Neg (NEGATIVE); Phencyclidine Screen, Urine Neg (NEGATIVE)
[2025-05-15] MEDS ORDERED: AMLO1TAB22 PO (21:55)
[2025-05-15 22:04] VITALS: PULSE 64
[2025-05-15 22:42] VITALS: BP 139/88; RESP 18; O2SAT 98
--- NOTE | 2025-05-16 05:43 | ECG ---
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
== END 2025-05-15 22:50 | disposition home or self-care (01) ==
LOC: ER 18:42
DX: S16.1XXA Strain of muscle, fascia and tendon at neck level, initial encounter (principal); I10 Essential (primary) hypertension; R51.9 Headache, unspecified; I25.2 Old myocardial infarction; F17.210 Nicotine dependence, cigarettes, uncomplicated; Z79.82 Long term (current) use of aspirin; Z79.899 Other long term (current) drug therapy; Z95.5 Presence of coronary angioplasty implant and graft; Z88.5 Allergy status to narcotic agent; X58.XXXA Exposure to other specified factors, initial encounter; Y93.89 Activity, other specified; Y92.89 Other specified places as the place of occurrence of the external cause; Y99.9 Unspecified external cause status
CPT/HCPCS: 36415; 70450; 80048; 80307; 81001; 85025; 93005

== ENCOUNTER 2025-05-16 15:49 | Inpatient (IN) | payer MEDICAID ==
[~2025-05-16] VITALS: Ht 167.6 cm; Wt 54.7 kg
[~2025-05-16 15:49] MED LIST changes: +AMLO1TAB22 PO
--- NOTE | 2025-05-16 16:42 | ED.PDOC ---
HPI Comments HPI: 49 year old male presents to the emergency department with a chief complaint of hypertension onset 3 days. Patient states BP has been elevated at home around 160 systolic, came to ED yesterday. Patient is currently taking hydrochlorothiazide as well as Metoprolol. After ED visit yesterday, cardiac workup was negative, was sent home with Amlodipine, BP has not improved. Upon ED arrival, BP was 162/117. He is currently experiencing lightheadedness worsens with laying down. No other symptoms or modifying factors present at this time. Initial Vitals BP: 162/117 HR: 81 RR: 16 O2: 100% Temp: 98.6 F Past Medical History: HTN, CAD, CT Past Surgical History: Denies Social History: Denies ETOH, smoking, and drug use. Medications: Metoprolol, hydrochlorothiazide, Amlodipine Allergies: NKDA HPI: Poor Historian. REVIEW OF SYSTEMS: CONSTITUTIONAL: Denies acute: fever, diaphoresis, chills, generalized weakness. HEAD: Denies acute: headache, photophobia Eyes: Denies acute: Double vision, vision loss, eye pain, eye discharge. EARS: Denies acute: tinnitus, hearing loss, ear discharge, ear pain, THROAT: Denies acute: sore throat, swelling, difficulty swallowing , pain with swallowing, change in voice. NECK: Denies acute: neck pain, neck swelling, stiff neck. HEART: Denies acute : chest pain, palpitations, LUNGS: Denies acute: SOB, wheezing, cough, hemoptysis ABDOMEN: Denies acute: abdominal pain, Nausea, Vomiting, diarrhea, melena , hematemesis, hematochezia SKIN: Denies acute: rash, redness, lesions, itchiness. EXTREMITIES: Denies acute: calf pain, numbness, tingling, weakness, denies pain in extremity. Denies acute: Low back pain. Neuro: Denies acute: focal neurological deficit, motor or sensory focal neurological deficit, tremors, seizure like activity, confusion, dizziness, change in mental status, loss of bowel or bladder function, cauda equina like symptoms. : Denies acute: dysuria, hematuria, flank pain, increase in urinary frequency. PSYCH: Denies acute: hallucination, suicidal ideation, homicidal ideation. PHYSICAL EXAM: General: ---no-----acute distress, awake and alert. Head: normocephalic, atraumatic. Neck: supple, trachea is midline, no swelling. Throat: Normal phonation. Eyes:, no erythema, no purulent discharge, no proptosis, no icterus. Heart: regular rate, regular rhythm, no significant murmur appreciated. Lungs: no apparent respiratory distress, Able to speak in full sentences. No wheezing, no rhonchi, no crackles. No stridors Clear to auscultation bilaterally. Abdomen: non tender to palpation, non distended, soft, no guarding, no rebound, + bowel sounds. Neuro: Awake, Alert, oriented to name, self, situation, follows commands GCS=15. Speech is normal. Skin: no petechia, no purpura, no cyanosis, non-pale, not jaundice. Lower extremities: --no - Pitting edema no deformity, no focal swelling, no calf TTP. Makes eye contact. moves all four extremities. Face: no apparent facial droop. Ambulating in the ED independently. ED COURSE: DISCLAIMER: This medical document was created using an electronic medical record system with voice recognition software and computerized dictation system. Although this document has been carefully reviewed, there might still be some phonetic and typographical errors. Occasional wrong-word or "sound-alike" substitutions may have occurred due to the inherent limitations of voice recognition software. These areas are purely typographical due to imperfections of the software programs and do not reflect any compromise in the patient's medical care. Please read the chart carefully and recognize, using context, where these substitutions have occurred. Chief Complaint: High Blood Pressure Time Seen by MD: 16:25 Primary Care Provider: NILES Reviewed Notes: Medications, Allergies Allergies: Coded Allergies: Morphine (Verified Allergy, Unknown, 09/10/24) Home Meds Active Scripts Amlodipine Besylate (Amlodipine Besylate) 5 Mg Tab, 5 MG PO DAILY for 14 Days, #14 TAB 0 Refills Prov:JAZMIN GREGG RESIDENT 05/15/25 Reported Medications Aspirin (Aspir-81) 81 Mg Tab, 1 TAB PO DAILY, #30 TAB 5 Refills 09/10/24 Atorvastatin Calcium (ATORVASTATIN CALCIUM) 40 Mg Tab, 1 TAB PO DAILY, #30 TAB 5 Refills 09/10/24 Omeprazole Magnesium (Omeprazole) 20 Mg Tab, 20 MG PO, TAB 09/10/24 Metoprolol Succinate (Metoprolol Succinate Er) 25 Mg Tab, 25 MG PO DAILY for 30 Days, MG 09/10/24 Losartan Potassium (Losartan Potassium) 25 Mg Tab, 25 MG PO DAILY for 30 Days, MG 09/10/24 Information Source: Patient Mode of Arrival: Ambulatory Severity: Moderate Timing: Days Duration: Since onset Prehospital treatment: None Onset: At Rest Cardiac Risk Factors: HTN PE Risk Factors: None History of: CT Modifying Factors: Nothing Past Medical History PAST MEDICAL HISTORY: CAD, HTN, CT Surgical History: PTCA Family History Family History: Reviewed,noncontributory to illness Social History Smoker: Cigarettes Alcohol: Rarely Drugs: Denies Drug Use Lives In: Home Was a procedure done? Was a procedure done?: No X-Ray, Labs, Meds, VS Vital Signs Date Time Temp Pulse Resp B/P (MAP) Pulse Ox O2 Delivery O2 Flow Rate FiO2 05/16/25 17:29 91 19 100 Room Air* 0 21 05/16/25 17:29 97.9 91 17 157/115 (129) 100 97.9 05/16/25 17:28 91 157/115 05/16/25 16:32 98.6 81 16 143/112 (122) 100 98.6 05/16/25 16:31 67 Lab Test 05/16/25 16:54 05/16/25 16:33 05/16/25 16:28 Range/Units White Blood Count 5.4 4.4-10.8 10^3/uL Red Blood Count 5.29 4.5-5.90 10^6/uL Hemoglobin 15.0 13.5-17.5 g/dL Hematocrit 45.2 41.0-53.0 % Mean Corpuscular Volume 85.5 80.0-100.0 fL Mean Corpuscular Hemoglobin 28.4 28.0-32.0 pg Mean Corpuscular Hemoglobin Concent 33.2 32.0-36.0 g/dL Red Cell Distribution Width 15.3 H 11.8-14.3 % Platelet Count 183 140-450 10^3/uL Mean Platelet Volume 9.9 6.9-10.8 fL Neutrophils (%) (Auto) 64.4 37.0-80.0 % Lymphocytes (%) (Auto) 29.9 10.0-50.0 % Monocytes (%) (Auto) 4.8 0.0-12.0 % Eosinophils (%) (Auto) 0.5 0.0-7.0 % Basophils (%) (Auto) 0.4 0.0-2.0 % Neutrophils # (Auto) 3.5 1.6-8.6 10 ^3/uL Lymphocytes # (Auto) 1.6 0.4-5.4 10 ^3/uL Monocytes # (Auto) 0.3 0-1.3 10 ^3/uL Eosinophils # (Auto) 0 0-0.8 10 ^3/uL Basophils # (Auto) 0 0-0.2 10 ^3/uL Nucleated Red Blood Cells 0.1 % Sodium Level 142 136-145 mmol/L Potassium Level 3.6 3.5-5.1 mmol/L Chloride Level 107 98-107 mmol/L Carbon Dioxide Level 29 20-31 mmol/L Anion Gap 6 5-15 Blood Urea Nitrogen 7 L 9-23 mg/dL Creatinine 1.19 0.700-1.30 mg/dL Glomerular Filtration Rate Calc 74 >90 mL/min BUN/Creatinine Ratio 5.9 L 10.0-20.0 Serum Glucose 80 74-106 mg/dL Calcium Level 10.8 H 8.7-10.4 mg/dL Total Bilirubin 0.5 0.2-1.0 mg/dL Aspartate Amino Transferase (AST) 32 13-40 U/L Alanine Aminotransferase (ALT) 24 7-40 U/L Alkaline Phosphatase 82 46-116 U/L Troponin I High Sensitivity 8 </=54 ng/L Total Protein 8.1 5.7-8.2 g/dL Albumin 5.2 H 3.2-4.8 g/dL POC Glucose 98 70-106 mg/dl Urine Color Colorless Yellow Urine Clarity Clear Clear Urine pH 6.0 5.0-9.0 Urine Specific [place] 1.005 1.001-1.035 Urine Protein Negative Negative Urine Ketones Negative Negative Urine Blood Negative Negative /uL Urine Nitrite Negative Negative Urine Bilirubin Negative Negative Urine Urobilinogen Normal Negative mg/dL Urine Leukocyte Esterase Negative Negative /uL Urine RBC 1 0 - 3 /hpf Urine Microscopic WBC 3 0-3 /HPF Urine Squamous Epithelial Cells Few <5 /hpf Urine Bacteria None seen None Seen /hpf Urine Glucose Normal Normal mg/dL Current Medications Medications (Trade) Dose Ordered Sig/Quintin Route Start Time Stop Time Status Last Admin Labetalol HCl (Labetalol HCl) 10 mg ONCE ONCE IV 05/16/25 16:45 05/16/25 16:46 DC 05/16/25 17:28 [place] [id number] Ph: [phone] DIAGNOSTIC IMAGING Diagnostic Imaging Report : [id number] Signed PATIENT: INDIA SCANLON ACCT: [id number] UNIT: [id number] : 1975 LOC: ER ROOM / BED: / AGE / SEX: 49 / M ADM STATUS: REG ER SERVICE 27 ORDERING PHYSICIAN: WHITNEY HOGAN DO PROCEDURE(s): HWOCT - HEAD WITHOUT CONTRAST REASON: HTN ORDER NUMBER(s): [id number], ACCESSION NUMBER(s): [id number] EXAM: CT HEAD WITHOUT CONTRAST INDICATION: HTN TECHNIQUE: CT of the head without intravenous contrast. Radiation Dose Information: CT Dose: CTDI volume is 53.65 mGy. Dose-length product is 949.92 mGy*cm The dose indicators for CT are the volume Computed Tomography (CT) Dose Index (CTDIvol) and the Dose Length Product (DLP), and are measured in units of mGy and mGy-cm, respectively. These indicators are not patient dose, but values generated from the CT scanner acquisition factors. The report includes radiation exposure data for exposures received during this examination. COMPARISON: CT HEAD WITHOUT CONTRAST on DOS: 05/15/25 FINDINGS: There is no evidence of acute intracranial hemorrhage, extra-axial collection, mass effect, midline shift, herniation or hydrocephalus. The ventricles, sulci and cisterns are age appropriate. The rodriguez-white differentiation is intact. Patchy periventricular and subcortical white matter hypoattenuation is non specific but may be related to small vessel ischemic disease. The visualized paranasal sinuses and mastoid air cells are clear. The surrounding soft tissues and osseous structures are unremarkable. IMPRESSION: 1. No acute intracranial abnormality. ATED BY: JANAE JOHNSON Jr., DO DICTATED DATE/TIME: 05/16/251704 SIGNED BY: JANAE JOHNSON Jr., DO SIGNED DATE/TIME: 05/16/251704 CC: [address] [address] Ph: [phone] DIAGNOSTIC IMAGING Diagnostic Imaging Report : [id number] Signed PATIENT: INDIA SCANLON ACCT: [id number] UNIT: [id number] : 1975 LOC: ER ROOM / BED: / AGE / SEX: 49 / M ADM STATUS: REG ER SERVICE 27 ORDERING PHYSICIAN: WHITNEY HOGAN DO PROCEDURE(s): CXRP - CHEST PORTABLE REASON: htn ORDER NUMBER(s): [id number], ACCESSION NUMBER(s): [id number] CHEST RADIOGRAPH Indication: htn Technique: Single frontal view of the chest was obtained Comparison: None FINDINGS: Lines and Tubes: None Lungs: No focal consolidation. Pleura: No effusion. No pneumothorax. Cardiomediastinal contours: Unremarkable Bones: No acute osseous abnormality. IMPRESSION: 1. No acute cardiopulmonary disease. ATED BY: JANAE JOHNSON Jr., DO DICTATED DATE/TIME: 05/16/251655 SIGNED BY: JANAE JOHNSON Jr., DO SIGNED DATE/TIME: 05/16/251655 CC: Time of 1ST Reevaluation: 16:55 Reevaluation 1ST: Unchanged Patient Education/Counseling: Diagnosis, Treatment Family Education/Counseling: No Family Present Departure 1 Departure Time of Disposition: 17:42 Impression: Primary Impression: Hypertensive crisis Critical Care Note Critical Care Time?: No I personally scribed for WHITNEY HOGAN DO ([email or web address]) on 05/16/25 at 16:42. Electronically submitted by Quyen Lewis ([email or web address]). I personally scribed for WHITNEY HOGAN DO ([email or web address]) on 05/16/25 at 18:18. Electronically submitted by Quyen Lewis [email or web address]). WHITNEY HOGAN DO May 16, 2025 16:42
--- NOTE | 2025-05-16 16:59 | DVH ---
CHEST RADIOGRAPH Indication: htn Technique: Single frontal view of the chest was obtained Comparison: None FINDINGS: Lines and Tubes: None Lungs: No focal consolidation. Pleura: No effusion. No pneumothorax. Cardiomediastinal contours: Unremarkable Bones: No acute osseous abnormality. IMPRESSION: 1. No acute cardiopulmonary disease.
--- NOTE | 2025-05-16 17:07 | DVH ---
EXAM: CT HEAD WITHOUT CONTRAST INDICATION: HTN TECHNIQUE: CT of the head without intravenous contrast. Radiation Dose Information: CT Dose: CTDI volume is 53.65 mGy. Dose-length product is 949.92 mGy*cm The dose indicators for CT are the volume Computed Tomography (CT) Dose Index (CTDIvol) and the Dose Length Product (DLP), and are measured in units of mGy and mGy-cm, respectively. These indicators are not patient dose, but values generated from the CT scanner acquisition factors. The report includes radiation exposure data for exposures received during this examination. COMPARISON: CT HEAD WITHOUT CONTRAST on DOS: 05/15/25 FINDINGS: There is no evidence of acute intracranial hemorrhage, extra-axial collection, mass effect, midline s hift, herniation or hydrocephalus. The ventricles, sulci and cisterns are age appropriate. The rodriguez-white differentiation is intact. Patchy periventricular and subcortical white matter hypoattenuation is nonspecific but may be related to small vessel ischemic disease. The visualized paranasal sinuses and mastoid air cells are clear. The surrounding soft tissues and osseous structures are unremarkable. IMPRESSION: 1. No acute intracranial abnormality.
[2025-05-16] MEDS: LABETALOL HCL 20 MG/4 ML VL IV ONE (17:28)
[2025-05-16 17:29] VITALS: PULSE 91; RESP 19; O2SAT 100
[2025-05-16 17:44] LABS: Hematocrit 45.2 % (41.0-53.0); Hemoglobin 15.0 g/dL (13.5-17.5); Mean Corpuscular Hemoglobin 28.4 pg (28.0-32.0); Mean Corpuscular Volume 85.5 fL (80.0-100.0); Nucleated Red Blood Cells % 0.1 %
[2025-05-16 18:00] LABS: Urine Protein, UAD Negative (Negative)
[2025-05-16 18:03] LABS: Alanine Aminotransferase 24 U/L (7-40); Alkaline Phosphatase 82 U/L (46-116); Anion Gap 6 (5-15); BUN/Creatinine Ratio 5.9 (10.0-20.0); Bilirubin, Total 0.5 mg/dL (0.2-1.0); Carbon Dioxide 29 mmol/L (20-31); Glucose 80 mg/dL (74-106); Potassium 3.6 mmol/L (3.5-5.1); Sodium 142 mmol/L (136-145); Total Protein 8.1 g/dL (5.7-8.2)
[2025-05-16 18:05] LABS: Albumin 5.2 g/dL (3.2-4.8); Blood Urea Nitrogen 7 mg/dL (9-23); Calcium 10.8 mg/dL (8.7-10.4); Chloride 107 mmol/L (98-107)
[2025-05-16] MEDS ORDERED: NITROGLYCERIN 0.4 MG SL TAB SL PRN (22:30)
[2025-05-16] MEDS ORDERED: MORPHINE SULFATE INJ 2 MG/ml SYRG IV PRN (22:30)
--- NOTE | 2025-05-16 23:22 | DVHHP2 ---
History of Present Illness History of Present Illness This is a 49-year-old male with past medical history of HTN, sciatica, prediabetic, CAD with 1 stent in 2016(LAD), CA, cervical vertebral decompression surgery on , patient came to ED due to high blood pressure. Patient measure blood pressure at home which is 160/112, 161/110. His blood pressure associated with mild headache especially on left side, feeling mild dizzy and fatigue. Current blood pressure medication losartan and metoprolol, patient visited ER yesterday and lab work done and sent to home with additional Amlodipine as BP is not well. controlled. ECHO (12/11/2024)- Concentric LVH. Valves are normal. EF of 60% with normal RV function. Mild aortic insufficiency. No pericardial effusion masses or vegetations. Patient denies any acute pain or any distress like on chest pain, SOB, fever, cough, photophobia, abdominal pain, nausea, diarrhea. He is a current smoker and using marijuana. Past Medical History: sciatica, prediabetic, CAD with 1 stent in 2016(LAD), CA, Past Surgical History: cervical vertebral decompression surgery on Social History: Denies ETOH, CURRENT SMOKER , using marijuana Medications: Metoprolol, hydrochlorothiazide, Amlodipine Allergies: MORPHINE PCP: DR. STACY Review of Systems Constitutional: Yes: Other (FATIGUE); No: Fever, Chills, Sweats, Weakness, Malaise Eyes: No: Pain, Vision change, Conjunctivae inflammation, Eyelid inflammation, Other, Redness ENT: No: Ear pain, Ear discharge, Nose pain, Nose discharge, Nose congestion, Mouth pain, Mouth swelling, Throat pain, Throat swelling, Other Respiratory: No: Cough, Dry, Shortness of breath, SOB with excertion, Wheezing, Hemoptysis, Pleuritic Pain, Sputum, Wheezing, Other Cardiovascular: No: Chest Pain, Palpitations, Orthopnea, Paroxysmal Noc. Dyspnea, Edema, Lt Headedness, Other Gastrointestinal: No: Nausea, Vomiting, Abdominal Pain, Diarrhea, Constipation, Melena, Hematochezia, Other Musculoskeletal: other (LOW-BACK PAIN) Skin: Other (Surgical scar samantha cervical region in vertebral column); No: Rash, Lesions, Jaundice, Bruising Neurological: Other (Mild dizzy occasionally) Allergies: Coded Allergies: Morphine (Verified Allergy, Unknown, 09/10/24) Medications Current Medications Medications Dose Ordered Sig/Quintin Route Start Time Stop Time Status Last Admin Dose Admin Nitroglycerin 0.4 mg Q5MINP PRN SL 05/16/25 22:30 Morphine Sulfate 2 mg Q30M PRN IV 05/16/25 22:30 Aspirin 81 mg DAILY PO 05/17/25 10:00 Atorvastatin Calcium 40 mg HS PO 05/16/25 22:00 Losartan Potassium 50 mg DAILY PO 05/17/25 10:00 Metoprolol Succinate 25 mg DAILY PO 05/17/25 10:00 Pantoprazole Sodium 40 mg DAILY@0600 PO 05/17/25 06:00 Pregabalin 25 mg DAILY PO 05/17/25 10:00 Methocarbamol 500 mg QID PO 05/17/25 06:00 Amlodipine Besylate 10 mg DAILY PO 05/17/25 10:00 Exam Vital Signs Vital Signs Date Time Temp Pulse Resp B/P (MAP) Pulse Ox O2 Delivery O2 Flow Rate FiO2 05/16/25 20:11 99.1 80 17 147/102 (117) 98 99.1 05/16/25 20:11 Room Air 05/16/25 17:29 0 21 General Appearance: Alert, Oriented X3, Cooperative, Other (Surgical scar samantha cervical region of the vertebra) HEENT: Atraumatic, PERRLA, EOMI Respiratory: Clear to auscultation, Normal air movement Cardiovascular: Regular rate, Normal S1, Normal S2 Abdominal: Normal bowel sounds, Soft, No tenderness, No hepatospenomegaly Extremities: No clubbing, No cyanosis, No edema, Normal pulses, Other (Restricted movement on cervical vertebra due to history of surgery) Skin: No rashes, No significant lesion Neuro: Normal gait, Normal speech, Strength at 5/5 X4 ext Labs/Xrays Labs Test 05/16/25 19:59 05/16/25 16:54 05/16/25 16:33 05/16/25 16:28 Range/Units Troponin I High Sensitivity 9 </=54 ng/L White Blood Count 5.4 4.4-10.8 10^3/uL Red Blood Count 5.29 4.5-5.90 10^6/uL Hemoglobin 15.0 13.5-17.5 g/dL Hematocrit 45.2 41.0-53.0 % Mean Corpuscular Volume 85.5 80.0-100.0 fL Mean Corpuscular Hemoglobin 28.4 28.0-32.0 pg Mean Corpuscular Hemoglobin Concent 33.2 32.0-36.0 g/dL Red Cell Distribution Width 15.3 H 11.8-14.3 % Platelet Count 183 140-450 10^3/uL Mean Platelet Volume 9.9 6.9-10.8 fL Neutrophils (%) (Auto) 64.4 37.0-80.0 % Lymphocytes (%) (Auto) 29.9 10.0-50.0 % Monocytes (%) (Auto) 4.8 0.0-12.0 % Eosinophils (%) (Auto) 0.5 0.0-7.0 % Basophils (%) (Auto) 0.4 0.0-2.0 % Neutrophils # (Auto) 3.5 1.6-8.6 10 ^3/uL Lymphocytes # (Auto) 1.6 0.4-5.4 10 ^3/uL Monocytes # (Auto) 0.3 0-1.3 10 ^3/uL Eosinophils # (Auto) 0 0-0.8 10 ^3/uL Basophils # (Auto) 0 0-0.2 10 ^3/uL Nucleated Red Blood Cells 0.1 % Sodium Level 142 136-145 mmol/L Potassium Level 3.6 3.5-5.1 mmol/L Chloride Level 107 98-107 mmol/L Carbon Dioxide Level 29 20-31 mmol/L Anion Gap 6 5-15 Blood Urea Nitrogen 7 L 9-23 mg/dL Creatinine 1.19 0.700-1.30 mg/dL Glomerular Filtration Rate Calc 74 >90 mL/min BUN/Creatinine Ratio 5.9 L 10.0-20.0 Serum Glucose 80 74-106 mg/dL Calcium Level 10.8 H 8.7-10.4 mg/dL Total Bilirubin 0.5 0.2-1.0 mg/dL Aspartate Amino Transferase (AST) 32 13-40 U/L Alanine Aminotransferase (ALT) 24 7-40 U/L Alkaline Phosphatase 82 46-116 U/L Total Protein 8.1 5.7-8.2 g/dL Albumin 5.2 H 3.2-4.8 g/dL POC Glucose 98 70-106 mg/dl Urine Color Colorless Yellow Urine Clarity Clear Clear Urine pH 6.0 5.0-9.0 Urine Specific [place] 1.005 1.001-1.035 Urine Protein Negative Negative Urine Ketones Negative Negative Urine Blood Negative Negative /uL Urine Nitrite Negative Negative Urine Bilirubin Negative Negative Urine Urobilinogen Normal Negative mg/dL Urine Leukocyte Esterase Negative Negative /uL Urine RBC 1 0 - 3 /hpf Urine Microscopic WBC 3 0-3 /HPF Urine Squamous Epithelial Cells Few <5 /hpf Urine Bacteria None seen None Seen /hpf Urine Glucose Normal Normal mg/dL SEPSIS Sepsis Screen Date sepsis recognized/suspect: May 16, 2025 Time Sepsis recognized/suspect: 1609 Recent Procedure: No On Antibiotic Therapy: No Respiratory Rate >20: No Heart Rate >90: No Temp<36 C (96.8 F) or >38.3 C: No SBP <90 or MAP <65 mmHG: No New Acute Mental Status Change: No Is the patient on CPAP, BIPAP,: No Physician Orders Machine Designer (05/16/25 ) Chest Portable (05/16/25 16:28) Electrocardigram (05/16/25 16:28) Head Without Contrast (05/16/25 16:28) Saline Lock (05/16/25 17:22) Admit (05/16/25 22:22) Nitroglycerin Sublingual (Ntrostat Subli (05/16/25 22:30) Morphine Sulfate Injection (05/16/25 22:30) Aspirin Tablet (05/17/25 10:00) Losartan Tablet (Cozaar Tablet) (05/17/25 10:00) Metoprolol Xl Succinate (Toprol Xl) (05/17/25 10:00) Pantoprazole Tablet (Protonix Tablet) (05/17/25 06:00) Pregabalin Capsule (Lyrica Capsule) (05/17/25 10:00) Methocarbamol (Robaxin) (05/17/25 06:00) Amlodipine Tablet (Norvasc Tablet) (05/17/25 10:00) Renal Artery Comp (05/16/25 22:22) Atorvastatin (Lipitor) (05/16/25 22:00) Vital Signs Date Time Temp Pulse Resp B/P (MAP) Pulse Ox O2 Delivery O2 Flow Rate FiO2 05/16/25 20:11 99.1 80 17 147/102 (117) 98 99.1 05/16/25 20:11 80 17 100 Room Air 05/16/25 17:29 91 19 100 Room Air* 0 21 05/16/25 17:29 97.9 91 17 157/115 (129) 100 97.9 05/16/25 17:28 91 157/115 05/16/25 16:32 98.6 81 16 143/112 (122) 100 98.6 05/16/25 16:31 67 Laboratory Tests Test 05/16/25 16:54 White Blood Count 5.4 10^3/uL (4.4-10.8) Medications Medications Dose Ordered Sig/Quintin Route Start Time Stop Time Status Last Admin Dose Admin Labetalol HCl 10 mg ONCE ONCE IV 05/16/25 16:45 05/16/25 16:46 DC 05/16/25 17:28 10 MG Assessment/Plan Assessment/Plan # UNCONTROLLED HYPERTENSION -Blood pressure at home which is 160/112, 161/110. -His blood pressure associated with mild headache especially on left side, feeling mild dizzy and fatigue. -Current BP medication losartan and metoprolol, patient visited ER yesterday additional Amlodipine -ECHO (12/11/2024)- Concentric LVH. -patient received IV labetalol 10 mg in ER -troponin: 8>7>9 -CXR-no cardiopulmonary disease -CT head w/o contrast - No acute intracranial abnormality. -Continue Amlodipine 10 mg instead of Amlodipine 5 mg -Home medication [id number] mg, losartan 50 mg instead of losartan 25 mg. -monitor blood pressure -renal artery ultrasound to rule out MARIAELENA # HYPERCALCEMIA LIKELY DEHYDRATION -Serum calcium level 10.8 -Encourage oral fluid intake. # CORONARY ARTERY DISEASE WITH STENT -2017 -[id number] mg p.o. daily -Atorvastatin 40 mg p.o. daily # CERVICAL VERTEBRAL DECOMPRESSION SURGERY-10/2023 WITH NEUROPATHY -[id number] mg p.o. daily Methocarbamol 500 mg p.o. daily # LOW-BACK PAIN DUE TO SCIATICA -Continue [id number] mg daily # CURRENT SMOKER -Patient smokes half pack cigarettes per day and using marijuana -Counseling done regarding smoking. Diet: Cardiac GI prophylaxis: Pantoprazole 40 mg p.o. daily DVT prophylaxis: Patient ambulating Goals of care discussions, more than28 minute spent. Full code status. Care discussed with Dr. Stacy. Plan discussed with: Patient, Other (Nurse) My Orders Orders - RIANNA DOVER Procedure Category Date Status Time Admit ADMIT 05/16/25 Transmitted 22:22 Nitroglycerin PHA 05/16/25 In Process Sublingual (Ntrostat 22:30 Morphine Sulfate PHA 05/16/25 In Process Injection 22:30 Aspirin Tablet PHA 05/17/25 In Process 10:00 Losartan Tablet PHA 05/17/25 In Process (Cozaar Tablet) 10:00 Metoprolol Xl PHA 05/17/25 In Process Succinate (Toprol Xl) 10:00 Pantoprazole Tablet PHA 05/17/25 In Process (Protonix Tablet) 06:00 Pregabalin Capsule PHA 05/17/25 In Process (Lyrica Capsule) 10:00 Methocarbamol PHA 05/17/25 In Process (Robaxin) 06:00 Amlodipine Tablet PHA 05/17/25 In Process (Norvasc Tablet) 10:00 Renal Artery Comp US 05/16/25 Logged 22:22 Atorvastatin (Lipitor) PHA 05/16/25 In Process 22:00 Date of Service: May 16, 2025 Billing Provider: MELECIO STACY MD Common Visit Codes: [id number] INP/OBS CARE (HIGH) Secondary Visit Codes: [id number] CARE PLAN 30 MINUTES RIANNA DOVER May 16, 2025 23:22
--- NOTE | 2025-05-17 01:55 | DVH ---
INDICATION: Hypertension TECHNIQUE: Multiple real-time sonographic images of the kidneys and bladder were obtained. Duplex Doppler evaluation including color Doppler and spectral/pulsed waveform analysis of the bilate ral renal arteries was performed. COMPARISON: None FINDINGS: The right kidney measures 9.4 cm in length. The right renal echogenicity, contour and cortical thickn ess are within normal limits. No hydronephrosis or large masses/calculi are seen. The left kidney measures 10.9 cm in length. The left renal echogenicity, contour, and cortical thickn ess are within normal limits. No hydronephrosis or large masses/calculi are seen. Aorta peak systolic velocity, 76.6 cm/s Right renal artery peak systolic velocity, 119 cm/s (< 180 cm/s = normal). Left renal artery peak systolic velocity 131 cm/s (< 180 cm/s = normal). Right RAR : 1.5 (< 3.5, normal) Left RAR 1.7 (< 3.5, normal) Right RI: 0.7 (< 0.75, normal) Left RI: 0.5 (< 0.75, normal) IMPRESSION: 1. No findings to suggest renal artery stenosis. *Bernadette Villalta Techniques in Noninvasive Vascular Diagnosis 2002
[2025-05-17 01:57] VITALS: PULSE 67; RESP 20; TEMP 97.4; O2SAT 100
[2025-05-17] MEDS: PREGABALIN 25 MG CAP PO ONE (02:40)
[2025-05-17] MEDS: ATORVASTATIN 20 MG TAB PO SCH (02:40)
[2025-05-17] MEDS: METHOCARBAMOL 500 MG TAB PO ONE (02:48)
[2025-05-17 05:00] VITALS: BP 118/79; PULSE 83; RESP 18; TEMP 99.2; O2SAT 98
[2025-05-17] MEDS: METHOCARBAMOL 500 MG TAB PO SCH (05:50)
[2025-05-17] MEDS: PANTOPRAZOLE 40 MG TAB PO SCH (05:50)
[2025-05-17 08:00] VITALS: PULSE 78; RESP 20; O2SAT 100
[2025-05-17 08:26] VITALS: BP 115/88; PULSE 78; RESP 20; TEMP 98; O2SAT 100
[2025-05-17 10:26] LABS: INR 0.99 (0.9-1.15); Partial Thromboplastin Time 31.2 SEC (24.5-34.5); Prothrombin Time 10.5 sec (9.3-11.8)
[2025-05-17] MEDS: LOSARTAN POTASSIUM 50 MG TAB PO SCH (10:34)
[2025-05-17] MEDS: METOPROLOL SUCCINATE XL 50 MG TAB PO SCH (10:34)
[2025-05-17] MEDS: PREGABALIN 25 MG CAP PO SCH (10:34)
--- NOTE | 2025-05-17 11:15 | DVHPNRES ---
Progress Note Date Seen: May 17, 2025 Resident Creating Document: BG YANG RESIDENT Medical Necessity Reason Pt with a Central, PICC or Fol: No Subjective Review of Systems This is a 49-year-old with CAD status post 1 DANY, hypertension, chronic back pain, ulnar neuropathic, status post laminectomy with spinal fusion who presented to the ER with a chief complaint of dizziness and high blood pressure. Patient reports that he has been compliant to his antihypertensive medication has been having some high blood pressure readings lately associated with dizziness. Patient will pressure was 160 x 110 mmHg at home, associated with headache left-sided, constant, dizziness and lightheadedness. Home medications: Metoprolol succinate 25 mg, losartan 50 mg daily PMH/PSH: See above PCP: Dr. Stacy Social history: Lives with family, smokes marijuana, denies alcohol use or drug use. Patient seen and examined at bedside. Low-grade fever 99.1, COVID and flu ordered. Patient started on his home medications metoprolol and losartan, amlodipine added to the regimen. Objective vital signs Vital Sign Date Time Temp Pulse Resp B/P (MAP) Pulse Ox O2 Delivery O2 Flow Rate FiO2 05/17/25 10:34 82 122/90 05/17/25 08:26 98.0 20 100 98.0 05/17/25 08:00 Room Air* 0 21 Total Intake and Output 05/16/25 05/16/25 05/17/25 15:00 23:00 07:00 Intake Total 100 ml Balance 100 ml medications Current Medications Medications Dose Ordered Sig/Quintin Route Start Time Stop Time Status Last Admin Dose Admin Nitroglycerin 0.4 mg Q5MINP PRN SL 05/16/25 22:30 Aspirin 81 mg DAILY PO 05/17/25 10:00 05/17/25 10:33 81 MG Atorvastatin Calcium 40 mg HS PO 05/16/25 22:00 05/17/25 02:40 40 MG Losartan Potassium 50 mg DAILY PO 05/17/25 10:00 05/17/25 10:34 50 MG Metoprolol Succinate 25 mg DAILY PO 05/17/25 10:00 05/17/25 10:34 25 MG Pantoprazole Sodium 40 mg DAILY@0600 PO 05/17/25 06:00 05/17/25 05:50 40 MG Pregabalin 25 mg DAILY PO 05/17/25 10:00 05/17/25 10:34 25 MG Methocarbamol 500 mg QID PO 05/17/25 06:00 05/17/25 05:50 500 MG Amlodipine Besylate 10 mg DAILY PO 05/17/25 10:00 05/17/25 10:33 10 MG Examination Patient lying in bed, in no acute distress General: Well-built, afebrile, palor, mucosae are moist Cardiovascular: Regular S1 and S2. No murmurs, gallops or rubs. No JVD elevation. No pedal edema Respiratory: Normal B/L air entry on room air. Clear lung sounds on auscultation Abdomen: Soft, nontender, nondistended, normoactive bowel sounds, no rebound tenderness, no organomegaly, no masses Genitourinary: Deferred MSK/skin: Mobilizes 4 limbs. Skin is dry and warm Neurological: No motor, no sensitive deficits, normal speech. Pupils are isocoric and reactive. Psych/Mental Status: A/Ox3 laboratory and microbiology Laboratory Tests 05/16/25 16:54 Test 05/16/25 16:54 Range/Units Serum Glucose 80 74-106 mg/dL Labs and/or images reviewed: Labs reviewed by me, Image(s) reviewed by me Problem List/Assessment/Plan Problem List/Assessment/Plan Dizziness secondary to Uncontrolled hypertension Hypertensive heart disease CAD status post [address], chest x-ray, renal artery duplex unremarkable Resume home medication metoprolol succinate 25 mg and losartan 50 mg daily Started amlodipine 10 mg daily Continue aspirin and atorvastatin daily Chronic back pain Status post laminectomy with the spinal fusion Monitor Nicotine dependence, marijuana dependence Counseled regarding cessation for more than 20 minutes Cardiac diet Pantoprazole 40 mg daily Plan discussed with patient in which all questions have been answered Goals of care discussed with patient for more than 20 minutes, full code status Case discussed with Dr. Rodríguez Plan discussed with: Patient My Orders My Orders Orders - BG YANG Procedure Category Date Status Time Vitamin D, 25-Hydroxy LAB 05/17/25 In Process 07:15 Vitamin B12 LAB 05/17/25 In Process 07:15 Drug Screen LAB 05/17/25 Logged 07:15 Rapid Influenza A&B LAB 05/17/25 Logged 07:16 Covid19 Antigen Beti LAB 05/17/25 Logged Date of Service: May 17, 2025 Billing Provider: LILI TEIXEIRA MD Common Visit Codes: [id number] INP/OBS CARE(HIGH) BG YANG RESIDENT May 17, 2025 11:15 LILI TEIXEIRA MD May 19, 2025 00:31
[2025-05-17 12:43] VITALS: BP 119/85; PULSE 68; RESP 18; TEMP 99.5; O2SAT 100
[2025-05-17] MEDS ORDERED: AMLO1TAB22 PO (14:38)
--- NOTE | 2025-05-17 14:38 | DVHDSRES ---
Discharge Summary Date of Admission Resident Creating Document: BG YANG RESIDENT May 16, 2025 at 22:22 Date of Discharge: May 17, 2025 Labs/Diagnostic Data: Laboratory Results Test 05/17/25 08:34 05/16/25 19:59 05/16/25 16:54 05/16/25 16:33 Prothrombin Time 10.5 sec (9.3-11.8) Prothrombin Time INR 0.99 (0.9-1.15) Activated Partial Thromboplast Time 31.2 SEC (24.5-34.5) Hemoglobin A1c 5.0 % A1C (<5.7) Thyroid Stimulating Hormone (TSH) 1.18 uIU/mL (0.55-4.78) Troponin I High Sensitivity 9 ng/L (</=54) White Blood Count 5.4 10^3/uL (4.4-10.8) Red Blood Count 5.29 10^6/uL (4.5-5.90) Hemoglobin 15.0 g/dL (13.5-17.5) Hematocrit 45.2 % (41.0-53.0) Mean Corpuscular Volume 85.5 fL (80.0-100.0) Mean Corpuscular Hemoglobin 28.4 pg (28.0-32.0) Mean Corpuscular Hemoglobin Concent 33.2 g/dL (32.0-36.0) Red Cell Distribution Width 15.3 % (11.8-14.3) Platelet Count 183 10^3/uL (140-450) Mean Platelet Volume 9.9 fL (6.9-10.8) Neutrophils (%) (Auto) 64.4 % (37.0-80.0) Lymphocytes (%) (Auto) 29.9 % (10.0-50.0) Monocytes (%) (Auto) 4.8 % (0.0-12.0) Eosinophils (%) (Auto) 0.5 % (0.0-7.0) Basophils (%) (Auto) 0.4 % (0.0-2.0) Neutrophils # (Auto) 3.5 10 ^3/uL (1.6-8.6) Lymphocytes # (Auto) 1.6 10 ^3/uL (0.4-5.4) Monocytes # (Auto) 0.3 10 ^3/uL (0-1.3) Eosinophils # (Auto) 0 10 ^3/uL (0-0.8) Basophils # (Auto) 0 10 ^3/uL (0-0.2) Nucleated Red Blood Cells 0.1 % Sodium Level 142 mmol/L (136-145) Potassium Level 3.6 mmol/L (3.5-5.1) Chloride Level 107 mmol/L (98-107) Carbon Dioxide Level 29 mmol/L (20-31) Anion Gap 6 (5-15) Blood Urea Nitrogen 7 mg/dL (9-23) Creatinine 1.19 mg/dL (0.700-1.30) Glomerular Filtration Rate Calc 74 mL/min (>90) BUN/Creatinine Ratio 5.9 (10.0-20.0) Serum Glucose 80 mg/dL (74-106) Calcium Level 10.8 mg/dL (8.7-10.4) Total Bilirubin 0.5 mg/dL (0.2-1.0) Aspartate Amino Transferase (AST) 32 U/L (13-40) Alanine Aminotransferase (ALT) 24 U/L (7-40) Alkaline Phosphatase 82 U/L (46-116) Total Protein 8.1 g/dL (5.7-8.2) Albumin 5.2 g/dL (3.2-4.8) POC Glucose 98 mg/dl (70-106) Test 05/16/25 16:28 Urine Color Colorless (Yellow) Urine Clarity Clear (Clear) Urine pH 6.0 (5.0-9.0) Urine Specific [place] 1.005 (1.001-1.035) Urine Protein Negative (Negative) Urine Ketones Negative (Negative) Urine Blood Negative /uL (Negative) Urine Nitrite Negative (Negative) Urine Bilirubin Negative (Negative) Urine Urobilinogen Normal mg/dL (Negative) Urine Leukocyte Esterase Negative /uL (Negative) Urine RBC 1 /hpf (0 - 3) Urine Microscopic WBC 3 /HPF (0-3) Urine Squamous Epithelial Cells Few /hpf (<5) Urine Bacteria None seen /hpf (None Seen) Urine Glucose Normal mg/dL (Normal) Other Laboratory Tests 05/16/25 16:54 Brief Hx & Hospital Course: This is a 49-year-old with CAD status post 1 DANY, hypertension, chronic back pain, ulnar neuropathic, status post laminectomy with spinal fusion who presented to the ER with a chief complaint of dizziness and high blood pressure. Patient reports that he has been compliant to his antihypertensive medication has been having some high blood pressure readings lately associated with dizziness. Patient will pressure was 160 x 110 mmHg at home, associated with headache left-sided, constant, dizziness and lightheadedness. Home medications: Metoprolol succinate 25 mg, losartan 50 mg daily PMH/PSH: See above PCP: Dr. Stacy Social history: Lives with family, smokes marijuana, denies alcohol use or drug use. During the hospitalization, head CT unremarkable, chest x-ray unremarkable. Patient was started on his home medication metoprolol 25 mg succinate and losartan 50 mg daily. Amlodipine 10 mg was added to the regimen. Given the uncontrolled hypertension renal artery duplex was completed which was unremarkable. We continued aspirin and atorvastatin during the stay. Patient's blood pressure was adequately controlled and therefore he was discharged. Patient has been discharged home with the following recommendations: Continue losartan 50 mg daily Continue metoprolol succinate 25 mg daily Continue amlodipine 10 mg daily Follow up with appointment with PCP on 05/21 Maintain blood pressure log every day morning and review it with PCP Continue cardiac diet Operations or Procedures ORDERING PHYSICIAN: RIANNA DOVER RESIDENT PROCEDURE(s): RAC - RENAL ARTERY COMP REASON: ORDER NUMBER(s): [id number], ACCESSION NUMBER(s): [id number] INDICATION: Hypertension TECHNIQUE: Multiple real-time sonographic images of the kidneys and bladder were obtained. Duplex Doppler evaluation including color Doppler and spectral/pulsed waveform analysis of the bilateral renal arteries was performed. COMPARISON: None FINDINGS: The right kidney measures 9.4 cm in length. The right renal echogenicity, contour and cortical thickness are within normal limits. No hydronephrosis or large masses/calculi are seen. The left kidney measures 10.9 cm in length. The left renal echogenicity, contour, and cortical thickness are within normal limits. No hydronephrosis or large masses/calculi are seen. Aorta peak systolic velocity, 76.6 cm/s Right renal artery peak systolic velocity, 119 cm/s (< 180 cm/s = normal). Left renal artery peak systolic velocity 131 cm/s (< 180 cm/s = normal). Right RAR : 1.5 (< 3.5, normal) Left RAR 1.7 (< 3.5, normal) Right RI: 0.7 (< 0.75, normal) Left RI: 0.5 (< 0.75, normal) IMPRESSION: 1. No findings to suggest renal artery stenosis. *Bernadette Villalta Techniques in Noninvasive Vascular Diagnosis 2001 ATED BY: BRIEN CHAO MD DICTATED DATE/TIME: 05/17/25151 SIGNED BY: BRIEN CHAO MD SIGNED DATE/TIME: 05/17/25151 CC: Condition at Discharge: Stable Final Diagnosis/Problems List Dizziness secondary to Uncontrolled hypertension Hypertensive heart disease CAD status post 1 DANY Chronic back pain Status post laminectomy with the spinal fusion Nicotine dependence Marijuana dependence-counseled regarding cessation for more than 20 minute Discharge Disposition: Home Discharge Instruct/Medications Diet: Cardiac 2g Na,low cholest Activity: Light activity Follow Up/Referral: Follow up with the DC clinic on Monday 05/21 Follow up with primary care physician Medications: Metoprolol succinate 25 mg daily Amlodipine 10 mg daily Losartan 50 mg daily Scheduled Amlodipine Besylate (Amlodipine Besylate), 10 MG PO DAILY Aspirin (Aspir-81), 1 TAB PO DAILY, (Reported) Atorvastatin Calcium (Atorvastatin Calcium), 1 TAB PO DAILY, (Reported) Losartan Potassium (Losartan Potassium), 25 MG PO DAILY, (Reported) Metoprolol Succinate (Metoprolol Succinate Er), 25 MG PO DAILY, (Reported) Miscellaneous Medications Omeprazole Magnesium (Omeprazole), 20 MG PO, (Reported) Discontinued Medications Amlodipine Besylate (Amlodipine Besylate), 5 MG PO DAILY Discharge Statement: "Patient was advised to return to the ER or call 911 if any headaches, dizziness, shortness of breath, chest pain, abdominal pain, bleeding, fevers, or worsening of medical condition. Patient was counseled about treatment plan, medications, possible side effects, patientverbalized understanding. All questions were answered to the best of my ability. This discharge took greater then 30 minutes in planning, reviewing documentation, counseling the patient, and discussing with other team members." ASSESSMENT ASSESSMENT Assessment Dizziness secondary to Uncontrolled hypertension Date of Service: May 17, 2025 Billing Provider: LILI TEIXEIRA MD Common Visit Codes: [id number] DISCH DAY >30min BG YANG RESIDENT May 17, 2025 14:38 LILI TEIXEIRA MD May 19, 2025 21:40
[2025-05-17 16:17] VITALS: BP 119/85; PULSE 68; RESP 18; TEMP 98.5; O2SAT 100
--- NOTE | 2025-05-19 16:11 | ECG ---
[facility] Test Date: 2025-05-16 Test Time: 16:31:25 Pat Name: INDIA SCANLON Department: ER Room: [address] [place] [address] 6 Gender: M Clinical Practitioner: NEELA : 1975 Requested By: WHITNEY HOGAN Order Number: [id number] Reading MD: Pradip Marie Measurements Intervals [place] Rate: 67 P: 44 ID: [id number] QRS: 9 QRSD: 81 T: 61 QT: 368 QTc: 389 Interpretive Statements Sinus rhythm Anterior infarct, old Electronically Signed On 05-19-2025 18:43:12 PDT by Pradip Marie Please click the below link to view image of tracing.
== END 2025-05-17 16:50 | disposition home or self-care (01) | DRG 199 ==
LOC: ER 15:49 → OVERFLOW 22:22 → EAST 05-17 02:55
PROVIDERS: ATTEND Internal Medicine
DX: I16.1 Hypertensive emergency (principal); I11.9 Hypertensive heart disease without heart failure; E83.52 Hypercalcemia; G62.9 Polyneuropathy, unspecified; I25.10 Atherosclerotic heart disease of native coronary artery without angina pectoris; F17.210 Nicotine dependence, cigarettes, uncomplicated; G89.29 Other chronic pain; Z79.899 Other long term (current) drug therapy; Z95.5 Presence of coronary angioplasty implant and graft; I25.2 Old myocardial infarction; Z88.5 Allergy status to narcotic agent
CPT/HCPCS: 36415; 70450; 71045; 80053; 81001; 82306; 82607; 82962; 83036; 84443; 84484; 85025; 85610; 85730; 93005; 93975; 96374; G0378